=== PATIENT | female | born 1995 | race Caucasian/White ===

== ENCOUNTER 2020-11-20 04:15 | Emergency (ER) | payer SELFPAY ==
[~2020-11-20] VITALS: Ht 167.7 cm; Wt 140.0 kg
[~2020-11-20 04:15] MED LIST: AZIT250T12 PO; CEFD300C3 PO; LORA1TAB59 PO; MEDR150D8 IM; MEDR400V IM; METH4TAB PO; NAPR-915 PO; OMEP20CA6 PO; SERT50TA2 PO; SMTR50T PO
--- NOTE | 2020-11-20 04:41 | ED Headache ---
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 PT C/O "MIGRAINE" SINCE THURSDAY EVENING 11/18/20 PT STATES "I HAVE CHRONIC MIGRAINES" STATES SHE GETS HEADACHES ONCE A WEEK, BUT "MIGRAINES" EVERY COUPLE OF MONTHS STATES THIS HEADACHE IS BEHIND RIGHT EYE AND IN RIGHT OCCIPUT C/O SEEING SPOTS IN BOTH EYES HEADACHE IS WORSE WITH LIGHT/SOUND C/O NAUSEA, NO VOMITING STATES THIS IS EXACTLY LIKE HER USUAL HEADACHES AND IS NO DIFFERENT IN ANY WAY STATES SHE TOOK 1 ZOFRAN, 1 IMITREX AND 1 OTC "HEADACHE RELIEF" YESTERDAY MORNING TOOK MIDOL AT 2300 THIS PM WHEN SHE GOT TO WORK HAS NOT TAKEN ANYTHING ELSE FOR SYMPTOMS STATES NO RELIEF WITH THE ABOVE PT DENIES FEVER OR RECENT ILLNESS PT HAS NOT HAD COVID-19 VACCINE AND STATES SHE "WILL NEVER GET IT" ADDITIONALLY, PT STATES SHE IS SUPPOSED TO BE ON INSULIN, BUT QUIT TAKING IT--"COULDN'T AFFORD IT" STATES SHE WAS DX WITH INSULIN DEPENDENT DIABETES 07/2019 STATES SHE IS SUPPOSED TO BE TAKING : NOVOLIN 45 UNITS IN AM, 35 UNITS IN PM; NOVOLIN R 15 UNITS WITH EACH MEAL PT HAS NOT TAKEN INSULIN SINCE JULY PT DOES NOT CHECK BLOOD SUGARS--STATES "IT WAS ALWAYS OVER 600 EVERY TIME WHEN I USED TO CHECK IT" PT STATES SHE JUST MOVED HERE IN [place] FROM [place] WAS GOING TO [facility] IN [place]--HAS NOT BEEN THERE FOR MANY MONTHS HAS NOT ATTEMPTED TO ESTABLISH CARE WITH ANYONE HERE IN [place] PCP: NONE STATES SHE HAS A NEUROLOGIST AT [facility] IN [place], DOES NOT KNOW NAME, HAS NOT BEEN THERE IN A LONG TIME Allergies and Home Medications Allergies Coded Allergies: Penicillins (Unverified Allergy, Unknown, 04/10/15) codeine (Unverified Allergy, Unknown, 04/10/15) prochlorperazine (Unverified Allergy, Unknown, 04/10/15) Home Medications Naproxen 500 Mg Tablet, 500 MG PO BID Prescribed by: MARTY HAGEN on 08/30/15 0236 Omeprazole 20 Mg Capsule.dr, 20 MG PO DAILY, (Reported) Sertraline HCl 50 Mg Tablet, 50 MG PO DAILY, (Reported) Patient Home Medication List Home Medication List Reviewed: Yes Review of Systems Review of Systems Constitutional: no symptoms reported Eyes: See HPI Ears, Nose, Mouth, Throat: no symptoms reported Respiratory: no symptoms reported Cardiovascular: no symptoms reported Gastrointestinal: see HPI, nausea; No vomiting Genitourinary: no symptoms reported : No LMP: Nov 07, 2020 (NO CONTROL) Musculoskeletal: no symptoms reported Skin: no symptoms reported Psychiatric/Neurological: See HPI, Headache; Denies Numbness, Denies Paresthesia, Denies Seizure, Denies Tingling, Denies Weakness Past Gpzwqjg-Fngzuc-Ayaagg Hx Past Med/Social Hx: Reviewed and Corrections made Patient Social History Alcohol Use: Rarely Uses Drug of Choice: THC Smoking Status: Current Everyday Smoker Type Used: Electronic/Vapor Seasonal Allergies Seasonal Allergies: Yes Past Medical History Surgeries: Yes (SKIN LESION REMOVED LEFT SHOULDER;RIGHT BREAST BIOPSY X 3;BMT'S) Adenoidectomy, Breast, Ear Surgery, Gallbladder, Orthopedic, Tonsillectomy Respiratory: Yes Asthma, Sleep Apnea Currently Using CPAP: No Currently Using BIPAP: No Cardiac: No Neurological: Yes Headaches /Migraines : No Reproductive Disorders: No Female Reproductive Disorders: Denies Sexually Transmitted Disease: No Genitourinary: No Gastrointestinal: No Musculoskeletal: No Endocrine: Yes (NON COMPLIANT-NOT TAKING INSULIN OR CHECKING BLOOD SUGAR) Diabetes, Insulin dep HEENT: Yes Chronic Ear Infection, Tonsilitis Psychosocial: Yes (BORDERLINE PERSONALITY) Anxiety, PTSD, Bipolar, Personality Disorder, Depression Adverse Reaction/Blood Tranf: No Family Medical History No Pertinent Family Hx Physical Exam Vital Signs Vital Signs - First Documented 11/20/20 04:30 Temp 36.9 Pulse 102 B/P (MAP) 144/78 (100) Pulse Ox 97 O2 Delivery Room Air Capillary Refill : Height, Weight, BMI Height: 5'6" Weight: 380lbs. oz. 172.176566qj; 61.33 BMI Method:Stated General Appearance: WD/WN, no apparent distress, obese, other (DOES NOT APPEAR TO BE IN ANY DISCOMFORT OR DISTRESS) HEENT: PERRL/EOMI, normal ENT inspection, TMs normal, pharynx normal Neck: non-tender, full range of motion, supple, normal inspection Cardiovascular: regular rate, rhythm, no murmur Respiratory: normal breath sounds Gastrointestinal: soft Extremities: normal inspection, normal capillary refill Psychiatric: alert, oriented x 3, other (FLAT AFFECT) Crainal Nerves: normal hearing, normal speech, PERRL Coordination/Gait: normal gait Motor/Sensory: no motor deficit Skin: normal color, warm/dry, tattoos/piercings (TATTOOS) Progress/Results/Core Measures Results/Orders Lab Results Laboratory Tests Test 11/20/20 04:32 11/20/20 04:40 Range/Units Urine Opiates Screen NEGATIVE NEGATIVE Urine Oxycodone Screen NEGATIVE NEGATIVE Urine Methadone Screen NEGATIVE NEGATIVE Urine Propoxyphene Screen NEGATIVE NEGATIVE Urine Barbiturates Screen NEGATIVE NEGATIVE Ur Tricyclic Antidepressants Screen NEGATIVE NEGATIVE Urine Phencyclidine Screen NEGATIVE NEGATIVE Urine Amphetamines Screen NEGATIVE NEGATIVE Urine Methamphetamines Screen NEGATIVE NEGATIVE Urine Benzodiazepines Screen NEGATIVE NEGATIVE Urine Cocaine Screen NEGATIVE NEGATIVE Urine Cannabinoids Screen NEGATIVE NEGATIVE Glucometer 391 H 70-110 MG/DL My Orders Orders - MARTY HAGEN DO Urine Bedside (11/20/20 04:26) Drug Screen Stat (Urine) (11/20/20 04:26) Accucheck Stat ONCE (11/20/20 04:36) Ketorolac Injection (Toradol Injection) (11/20/20 04:45) Ondansetron Oral Dissolve Tab (Zofran (11/20/20 05:00) Medications Given in ED Current Medications Medications Dose Ordered Sig/Russ Route Start Time Stop Time Status Last Admin Dose Admin Ketorolac Tromethamine 60 mg ONCE ONCE IM 11/20/20 04:45 11/20/20 04:46 DC 11/20/20 04:52 60 MG Ondansetron HCl 4 mg ONCE ONCE PO 11/20/20 05:00 11/20/20 05:01 DC 11/20/20 04:52 4 MG Vital Signs/I&O 11/20/20 04:30 Temp 36.9 Pulse 102 B/P (MAP) 144/78 (100) Pulse Ox 97 O2 Delivery Room Air Progress Progress Note : Progress Note ACCUCHECK--391--PT STATES SHE IS NOT CONCERNED ABOUT HER BLOOD SUGAR--STATES "IT WAS ALWAYS OVER 600 WHEN I USED TO CHECK IT" IS NOT CONCERNED ABOUT GETTING RESTARTED ON MEDICATION OR CHECKING HER BLOOD SUGARS DOES NOT WANT ANY FURTHER TESTING OR TREATMENT OF GLUCOSE TONIGHT STRONGLY ADVISED THE IMPORTANCE OF FOLLOW UP WITH [facility] IN [place], OR [facility]LISH [facility] IN [place] FOR FURTHER EVALUATION AND TREATMENT OF HER BLOOD SUGAR--PT STATES SHE IS NOT INTERESTED. [facility] WITH HER MEDICATIONS, DIABETIC TEACHING, GETTING GLUCOSE MONITOR, ETC. ADVISED HER OF ALL THE COMPLICATIONS OF DIABETES, INCLUDING BLINDNESS, DAMAGE TO INTERNAL ORGANS, NERVE DAMAGE, LOSS OF LIMBS, INFECTIONS AND , AND THAT THOSE THINGS COULD BE PREVENTED WITH GOOD CONTROL OF HER BLOOD SUGAR, ESPECIALLY IF SHE GETS CONTROL OF IT AT HER YOUNG AGE. PT STATES SHE "DOESN'T CARE"--PT STATES "I DON'T NEED TO HEAR IT--I ALREADY KNOW ALL OF IT"--"EVERYBODY IN MY FAMILY HAS IT"--I DON'T NEED TO HEAR A LECTURE FROM YOU" GIVEN TORADOL AND ZOFRAN PT STATES SHE STILL HAS ZOFRAN AND IMITREX AT HOME Departure Impression Primary Impression: Headache Additional Impression: NON COMPLIANT INSULIN DEPENDENT DIABETES Disposition: HOME, SELF-CARE Condition: Stable Departure-Patient Inst. Decision time for Depature: 05:00 Referrals: NO,LOCAL PHYSICIAN (PCP/Family) Primary Care Physician Patient Instructions: DIABETES, Headache, Adult (DC) Add. Discharge Instructions: LOTS OF CLEAR LIQUIDS TYLENOL 1 GRAM/ MOTRIN 800 MG 4 TIMES A DAY NEEDED FOR PAIN TAKE ZOFRAN EVERY 4 HOURS NEEDED FOR NAUSEA TAKE YOUR IMITREX SOON YOUR HEADACHE STARTS. YOU MAY REPEAT IT IN 2 HOURS IF NEEDED FOLLOW UP WITH [facility] IN [place], OR WITH LOCAL DR OF CHOICE SOON POSSIBLE FOR FURTHER CARE Work/School Note: Local Medical Staff Listing MARTY HAGEN DO Nov 20, 2020 04:41
[2020-11-20] MEDS ORDERED: KETOROLAC 60 MG/2 ML VIAL IM ONE (04:45)
[2020-11-20 04:56] LABS: AMPHETAMINE SCREEN, URINE NEGATIVE (NEGATIVE); BARBITURATE SCREEN URINE NEGATIVE (NEGATIVE); BENZODIAZEPINES SCREEN URINE NEGATIVE (NEGATIVE); CANNABINOID SCREEN, URINE NEGATIVE (NEGATIVE); COCAINE SCREEN URINE NEGATIVE (NEGATIVE); METHADONE STAT NEGATIVE (NEGATIVE); METHAMPHETAMINE SCREEN URINE S NEGATIVE (NEGATIVE); OPIATE SCREEN URINE NEGATIVE (NEGATIVE); OXYCODONE STAT NEGATIVE (NEGATIVE); PROPOXYPHENE STAT NEGATIVE (NEGATIVE); TRICYCLIC ANTIDEPRESSANTS SCRE NEGATIVE (NEGATIVE)
[2020-11-20] MEDS ORDERED: ONDANSETRON 4 MG (ZOFRAN) ORAL DISSOLVE TAB PO ONE (05:00)
[2020-11-20 05:10] VITALS: BP 128/89
== END 2020-11-20 05:06 | disposition home or self-care (01) ==
LOC: EDUNIT# 04:15 → ER 04:21
DX: G43.709 Chronic migraine without aura, not intractable, without status migrainosus (principal); F41.9 Anxiety disorder, unspecified; F43.10 Post-traumatic stress disorder, unspecified; F31.9 Bipolar disorder, unspecified; F60.9 Personality disorder, unspecified; E11.9 Type 2 diabetes mellitus without complications; E66.9 Obesity, unspecified; J45.909 Unspecified asthma, uncomplicated; F17.290 Nicotine dependence, other tobacco product, uncomplicated; Z79.4 Long term (current) use of insulin; Z91.14 Patient's other noncompliance with medication regimen
CPT/HCPCS: 80306; 82947; 84703

== ENCOUNTER 2021-02-10 00:44 | Emergency (ER) | payer SELFPAY ==
[~2021-02-10] VITALS: Ht 167 cm; Wt 145.0 kg
[2021-02-10] MEDS ORDERED: INSN1U (00:57)
[2021-02-10] MEDS ORDERED: PRD20T (00:57)
[2021-02-10] MEDS ORDERED: CYCL10TA9 (00:57)
--- NOTE | 2021-02-10 02:18 | ED General ---
General Chief Complaint: COVID19 Suspect/Confirmed Stated Complaint: COUGH/CONGESTION/HEADACHE/LOSS OF TASTE/SMELL Nursing Triage Note: dx with ear/sinus infection 02/07/21 reports sore throat, persistant cough, loss of taste/smell 02/09/21 Source of Information: Patient Exam Limitations: No Limitations History of Present Illness Date Seen by Provider: Feb 10, 2021 Time Seen by Provider: 00:55 Initial Comments This 25-year-old young lady presents to the emergency room with complaints of cough, shortness of breath, discomfort in the upper central chest, and congesti on. She was diagnosed with a sinus infection on February 07 and started on azithromycin. She has been previously fully vaccinated for COVID-19. She has risk factors and comorbidities including diabetes, asthma, and obesity. She is noted to be mildly tachycardic on presentation. Yesterday she noted changes to her taste and smell. Allergies and Home Medications Allergies Coded Allergies: Penicillins (Unverified Allergy, Unknown, 04/10/15) codeine (Unverified Allergy, Unknown, 04/10/15) prochlorperazine (Unverified Allergy, Unknown, 04/10/15) Patient Home Medication List Home Medication List Reviewed: Yes Cyclobenzaprine HCl (Cyclobenzaprine HCl) 10 Mg Tablet, (Reported) Entered as Reported by: RHONDA GEORGES on 02/10/2156 Last Action: New Order Insulin NPH Human Isophane (Novolin N) 100 Unit/1 Ml Vial, (Reported) Entered as Reported by: RHONDA GEORGES on 02/10/2156 Last Action: New Order Medroxyprogesterone Acetate (Depo-Provera) 150 Mg/1 Ml Syringe, 150 MG IM, (Reported) Entered as Reported by: SHELLEY MCCLOUD on 08/30/15213 Naproxen (Naproxen) 500 Mg Tablet, 500 MG PO BID Prescribed by: MARTY HAGEN on 08/30/15235 Omeprazole (Prilosec) 20 Mg Capsule.dr, 20 MG PO DAILY, (Reported) Entered as Reported by: SHELLEY MCCLOUD on 08/30/15213 Prednisone (Prednisone) 20 Mg Tab, (Reported) Entered as Reported by: RHONDA GEORGES on 02/10/2156 Last Action: New Order Sertraline HCl (Zoloft) 50 Mg Tablet, 50 MG PO DAILY, (Reported) Entered as Reported by: SHELLEY MCCLOUD on 08/30/15 0214 Review of Systems Review of Systems Constitutional: no symptoms reported EENTM: see HPI Respiratory: see HPI Cardiovascular: see HPI Gastrointestinal: no symptoms reported Genitourinary: no symptoms reported : No Musculoskeletal: no symptoms reported Skin: no symptoms reported Psychiatric/Neurological: No Symptoms Reported Past Yrczpgh-Kumaat-Nktlic Hx Patient Social History Tobacco Use?: Yes Smoking Status: Current Everyday Smoker Use of E-Cig and/or Vaping dev: Yes E-Cig or Vaping type used: Nicotine Use of E-Cig and/or Vaping Phong: Current Everyday User Substance use?: No Alcohol Use?: No Pt feels they are or have been: No Immunizations Up To Date Tetanus Booster (TDap): Less than 5yrs First/Initial COVID19 Vaccinat: 01/19 Second COVID19 Vaccination Yann: 02/19 COVID19 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 Surgeries: Yes (SKIN LESION REMOVED LEFT SHOULDER;RIGHT BREAST BIOPSY X 3;BMT'S ) Gallbladder, Tonsillectomy Respiratory: Yes Asthma, Sleep Apnea Currently Using CPAP: No Currently Using BIPAP: No Cardiac: No Neurological: Yes Headaches /Migraines Reproductive Disorders: No Female Reproductive Disorders: Denies Sexually Transmitted Disease: No Genitourinary: No Gastrointestinal: No Musculoskeletal: No Endocrine: Yes (NON COMPLIANT-NOT TAKING INSULIN OR CHECKING BLOOD SUGAR) Diabetes, Insulin dep HEENT: Yes Chronic Ear Infection, Tonsilitis Cancer: No Psychosocial: Yes (BORDERLINE PERSONALITY) Anxiety, PTSD, Bipolar, Personality Disorder, Depression Integumentary: Yes Blood Disorders: No Adverse Reaction/Blood Tranf: No Family Medical History No Pertinent Family Hx Physical Exam Vital Signs Vital Signs - First Documented 02/10/21 00:49 Temp 37.0 Pulse 108 Resp 18 B/P (MAP) 150/93 (112) Pulse Ox 97 O2 Delivery Room Air Capillary Refill : Less Than 3 Seconds Height, Weight, BMI Height: 5'6" Weight: 380lbs. oz. 172.886032il; 51.00 BMI Method:Stated General Appearance: WD/WN, Mild Distress (A little short of breath), Obese HEENT: PERRL/EOMI, Normal ENT Inspection, Pharynx Normal Neck: Normal Inspection Respiratory: Lungs Clear, No Accessory Muscle Use, Other (Breath sounds a bit diminished. Slightly tachypneic.) Cardiovascular: No Edema, No Murmur, Tachycardia Gastrointestinal: Normal Bowel Sounds, Non Tender, Soft Extremity: Normal Inspection, No Calf Tenderness, No Pedal Edema Neurologic/Psychiatric: Alert, Oriented x3, No Motor/Sensory Deficits, Normal Mood/Affect Skin: Normal Color, Warm/Dry Progress/Results/Core Measures Suspected Sepsis SIRS Temperature: Pulse: 108 Respiratory Rate: 18 Blood Pressure 150 /93 Mean: 112 Results/Orders Lab Results Laboratory Tests Test 02/10/21 00:55 Range/Units Influenza Type A (RT-PCR) Not Detected Not Detecte Influenza Type B (RT-PCR) Not Detected Not Detecte SARS-CoV-2 RNA (RT-PCR) Not Detected Not Detecte Group A Streptococcus Screen NEGATIVE NEGATIVE Micro Results Microbiology 02/10/21 Throat Culture - Preliminary, Resulted No Beta Strep isolated My Orders Orders - SEDA CASIANO MD Covid 19 Inhouse Test (02/10/21 00:55) Influenza A And B By Pcr (02/10/21 00:55) Rapid Strep A Screen (02/10/21 01:04) Vital Signs/I&O 02/10/21 02/10/21 00:49 02:20 Temp 37.0 36.9 Pulse 108 101 Resp 18 18 B/P (MAP) 150/93 (112) 121/61 Pulse Ox 97 96 O2 Delivery Room Air Room Air Capillary Refill : Less Than 3 Seconds Blood Pressure Mean: 112 Progress Note : Progress Note Oxygen saturation remained in the upper 90s on room air without any treatments. Symptoms are highly suspicious for COVID-19 but her swab was negative. Swabs for influenza and strep were also negative. She was encouraged to continue with her is a azithromycin. She was also encouraged to have a repeat COVID-19 test performed as her symptoms are highly suspicious and I am concerned her test this morning may be a false negative. See discharge instructions for further discus unique. Departure Impression Primary Impression: Person under investigation for COVID-19 Additional Impression: Flu-like symptoms Disposition: HOME, SELF-CARE Condition: Stable Departure-Patient Inst. Decision time for Depature: 02:15 Referrals: NO,LOCAL PHYSICIAN (PCP/Family) Primary Care Physician Patient Instructions: COVID-19 ED, Viral Upper Respiratory Infection, Adult (DC) Add. Discharge Instructions: Medications you have classic symptoms of COVID-19 with loss of taste and smell, I am recommending that you remain in quarantine until you can get a repeat COVID-19 test in 24 to 48 hours. If you test positive for COVID-19, please contact your primary care provider to arrange monoclonal antibody therapy. You will qualify for this treatment because of your asthma, diabetes, and BMI. If you cannot get this arranged through your primary care provider, please call back to the ER at [facility]. Complete your antibiotic as prescribed. Check your oxygen saturation 2 or 3 times a day or if you are feeling increasingly short of breath. If you have multiple measurements below 92% or any measurement below 90%, please return to the ER. Call with questions or concerns. Return to the ER if you have worsening symptoms. All discharge instructions reviewed with patient and/or family. Voiced understanding. Work/School Note: Work Release Form Date Seen in the Emergency Department: Feb 10, 2021 Return to Work: Feb 12, 2021 Restrictions: Return-No Fever (24hrs) Other Restrictions Listed Below: May return to work if feeling well and COVID test is negative. SEDA CASIANO MD Feb 10, 2021 02:18
[2021-02-10 02:20] VITALS: BP 121/61
== END 2021-02-10 02:24 | disposition home or self-care (01) ==
LOC: EDUNIT# 00:44 → ER 00:46
DX: J11.1 Influenza due to unidentified influenza virus with other respiratory manifestations (principal); G47.30 Sleep apnea, unspecified; F41.9 Anxiety disorder, unspecified; E66.9 Obesity, unspecified; J45.909 Unspecified asthma, uncomplicated; F32.9 Major depressive disorder, single episode, unspecified; E11.9 Type 2 diabetes mellitus without complications; F17.290 Nicotine dependence, other tobacco product, uncomplicated; Z20.822 Contact with and (suspected) exposure to COVID-19; Z68.43 Body mass index [BMI] 50.0-59.9, adult; Z79.899 Other long term (current) drug therapy; Z79.4 Long term (current) use of insulin
CPT/HCPCS: 87430; 87636; 99284

== ENCOUNTER 2021-05-18 23:58 | Emergency (ER) | payer SELFPAY ==
[~2021-05-18] VITALS: Ht 168 cm; Wt 143.0 kg
[~2021-05-18 23:58] MED LIST changes: +CYCL10TA25; +INSN1U; +PRD20T
[2021-05-19] MEDS ORDERED: ONDANSETRON 4 MG (ZOFRAN) ORAL DISSOLVE TAB PO STA (00:19)
[2021-05-19] MEDS ORDERED: CYCL10TA25 PO (00:21)
[2021-05-19] MEDS ORDERED: ONDA8TAB13 PO (00:21)
[2021-05-19] MEDS ORDERED: KETO10TA PO (00:21)
--- NOTE | 2021-05-19 00:21 | ED Headache ---
General Chief Complaint: Head/Cervical Problems Stated Complaint: MIGRAINE Source: patient History of Present Illness Date Seen by Provider: May 19, 2021 Time Seen by Provider: 00:09 Initial Comments PT ARRIVES VIA POV C/O "MIGRAINE" X 3 DAYS STATES SHE HAS "CHRONIC MIGRAINES" AND THIS IS EXACTLY THE SAME PREVIOUS HEADACHES PAIN IS BEHIND BOTH EYES AND IN BACK OF HEAD NO VISION CHANGES + NAUSEA, NO VOMITING NO PARESTHESIAS OR MOTOR DEFICITS NO FEVER OR RECENT ILLNESS STATES SHE TOOK 1 TYLENOL EARLIER TODAY AND 1 MIDOL AROUND 1999 TONIGHT--NO RELIEF HAS SUMATRIPTAN AT HOME, BUT HAS NOT TAKEN ANY TODAY--TOOK 1 YESTERDAY WITHOUT RELIEF PT HAS NOT SEEN A NEUROLOGIST SINCE 2017--WAS SEEING UNKNOWN NEUROLOGIST AT [facility] IN [place] PT STATES SHE "JUST MOVED HERE IN [place]UL[place] OF THIS YEAR" [facility] [place]--WAS THERE A FEW MONTHS AGO PT WORKS AT [employer] IN [place] STATES SHE WENT TO [facility], BUT THE WAIT WAS TOO LONG, SO SHE CAME HERE. PT IS INSULIN DEPENDENT DIABETIC--LONG HISTORY OF NON-COMPLIANCE IN ALL ASPECTS OF CARE STATES SHE IS ON HUMALOG 40 MG BID--STATES GLUCOSE WAS IN 200'S AT 1999 TONIGHT. PCP; [facility] [place] Allergies and Home Medications Allergies Coded Allergies: Penicillins (Unverified Allergy, Unknown, 04/10/15) codeine (Unverified Allergy, Unknown, 04/10/15) prochlorperazine (Unverified Allergy, Unknown, 04/10/15) Patient Home Medication List Home Medication List Reviewed: Yes Cyclobenzaprine HCl (Cyclobenzaprine HCl) 10 Mg Tablet, (Reported) Entered as Reported by: RHONDA GEORGES on 02/10/2156 Cyclobenzaprine HCl (Cyclobenzaprine HCl) 10 Mg Tablet, 10 MG PO Q8H PRN for SPASMS Prescribed by: MARTY HAGEN on 05/19/2120 Insulin NPH Human Isophane (Novolin N) 100 Unit/1 Ml Vial, (Reported) Entered as Reported by: RHONDA GEORGES on 02/10/2156 Ketorolac Tromethamine (Ketorolac Tromethamine) 10 Mg Tablet, 10 MG PO Q6H Prescribed by: MARTY HAGEN on 12/19/21 0021 Medroxyprogesterone Acetate (Depo-Provera) 150 Mg/1 Ml Syringe, 150 MG IM, (Reported) Entered as Reported by: SHELLEY MCCLOUD on 08/30/15213 Naproxen (Naproxen) 500 Mg Tablet, 500 MG PO BID Prescribed by: MARTY HAGEN on 08/30/15 0236 Omeprazole (Prilosec) 20 Mg Capsule.dr, 20 MG PO DAILY, (Reported) Entered as Reported by: SHELLEY MCCLOUD on 08/30/15213 Ondansetron (Ondansetron Odt) 8 Mg Tab.rapdis, 8 MG PO Q6H Prescribed by: MARTY HAGEN on 05/19/21 002 Prednisone (Prednisone) 20 Mg Tab, (Reported) Entered as Reported by: RHONDA GEORGES on 02/10/2156 Sertraline HCl (Zoloft) 50 Mg Tablet, 50 MG PO DAILY, (Reported) Entered as Reported by: SHELLEY MCCLOUD on 08/30/15213 Review of Systems Review of Systems Constitutional: no symptoms reported Eyes: See HPI Ears, Nose, Mouth, Throat: no symptoms reported Respiratory: no symptoms reported Gastrointestinal: see HPI; No abdominal pain, No diarrhea; nausea; No vomiting Genitourinary: no symptoms reported LMP: Apr 25, 2021 Musculoskeletal: no symptoms reported Skin: no symptoms reported Psychiatric/Neurological: See HPI, Headache; Denies Numbness, Denies Paresthesia, Denies Seizure, Denies Tingling, Denies Tremors, Denies Weakness Past Qiayyng-Yctpsc-Mxzgjf Hx Patient Social History Tobacco Use?: Yes Use of E-Cig and/or Vaping dev: Yes E-Cig or Vaping type used: Nicotine Use of E-Cig and/or Vaping Phong: Current Everyday User Substance use?: Yes Substance type: Marijuana Substance frequency: Daily Alcohol Use?: Yes Alcohol Frequency: Rarely Immunizations Up To Date Tetanus Booster (TDap): Less than 5yrs First/Initial COVID19 Vaccinat: 01/19 Second COVID19 Vaccination Yann: 02/19 Seasonal Allergies Seasonal Allergies: No Past Medical History Surgery/Hospitalization HX: marcia, t/a, bmt, r lumpectomy, asthma, iddm, lexa, ptsd, borderline personality disorder, anxiety. Surgeries: Yes (SKIN LESION REMOVED LEFT SHOULDER;RIGHT BREAST BIOPSY X 3;BMT'S) Breast, Ear Surgery, Gallbladder, Tonsillectomy Respiratory: Yes Asthma, Sleep Apnea Currently Using CPAP: No Currently Using BIPAP: No Cardiac: No Neurological: Yes Headaches /Migraines Reproductive Disorders: No Female Reproductive Disorders: Denies Sexually Transmitted Disease: No Genitourinary: No Gastrointestinal: No Musculoskeletal: No Endocrine: Yes (NON COMPLIANT-; MORBID OBESITY) Diabetes, Insulin dep HEENT: Yes Chronic Ear Infection, Tonsilitis Cancer: No Psychosocial: Yes (BORDERLINE PERSONALITY) Anxiety, PTSD, Bipolar, Personality Disorder, Depression Integumentary: Yes Blood Disorders: No Adverse Reaction/Blood Tranf: No Family Medical History No Pertinent Family Hx Physical Exam Vital Signs Vital Signs - First Documented 05/19/21 00:05 Temp 36.4 Pulse 104 Resp 18 B/P (MAP) 155/92 (113) Pulse Ox 99 O2 Delivery Room Air Capillary Refill : Height, Weight, BMI Height: 5'6" Weight: 380lbs. oz. 172.646968er; 51.00 BMI Method:Stated General Appearance: WD/WN, obese, other (FLAT AFFECT. DOES NOT APPEAR TO BE IN ANY DISCOMFORT OR DISTRESS. NO PHOTOPHOBIA) HEENT: PERRL/EOMI, normal ENT inspection, other (TM'S SCLEROTIC) Neck: non-tender, full range of motion, supple, normal inspection Cardiovascular: normal peripheral pulses, regular rate, rhythm, no edema, no JVD, no murmur Respiratory: normal breath sounds Gastrointestinal: non tender, soft Extremities: normal inspection Psychiatric: alert, oriented x 3 Crainal Nerves: normal hearing, normal speech, PERRL Coordination/Gait: normal gait Motor/Sensory: no motor deficit, no sensory deficit Skin: normal color, warm/dry Progress/Results/Core Measures Results/Orders My Orders Orders - MARTY HAGEN DO Ketorolac Injection (Toradol Injection) (05/19/21 00:30) Orphenadrine Inj (Ed Only) (Norflex Inje (05/19/21 00:30) Ondansetron Oral Dissolve Tab (Zofran (05/19/21 00:19) Medications Given in ED Current Medications Medications Dose Ordered Sig/Russ Route Start Time Stop Time Status Last Admin Dose Admin Ketorolac Tromethamine 60 mg ONCE ONCE IM 05/19/21 00:30 05/19/21 00:31 DC 05/19/21 00:27 60 MG Orphenadrine Citrate 60 mg ONCE ONCE IM 05/19/21 00:30 05/19/21 00:31 DC 05/19/21 00:28 60 MG Vital Signs/I&O 05/19/21 00:05 Temp 36.4 Pulse 104 Resp 18 B/P (MAP) 155/92 (113) Pulse Ox 99 O2 Delivery Room Air Progress Progress Note : Progress Note GIVEN TORADOL, NORFLEX AND ZOFRAN WITH IMPROVEMENT IN SYMPTOMS PT TALKING ON PHONE THROUGHOUT ER STAY Departure Impression Primary Impression: Headache Disposition: HOME, SELF-CARE Condition: Stable Departure-Patient Inst. Decision time for Depature: 00:20 Referrals: NO,LOCAL PHYSICIAN (PCP/Family) Primary Care Physician Patient Instructions: Headache, Adult (DC) Add. Discharge Instructions: TAKE YOUR REGULAR MEDICATIONS PRESCRIBED FOLLOW UP WITH NEUROLOGIST NEXT WEEK FOR FURTHER CARE All discharge instructions reviewed with patient and/or family. Voiced understanding. Scripts Ondansetron (Ondansetron Odt) 8 Mg Tab.rapdis 8 MG PO Q6H, #10 TAB Prov: MARTY HAGEN DO 05/19/21 Ketorolac Tromethamine (Ketorolac Tromethamine) 10 Mg Tablet 10 MG PO Q6H for Pain, #15 TAB Prov: MARTY HAGEN DO 05/19/21 Cyclobenzaprine HCl (Cyclobenzaprine HCl) 10 Mg Tablet 10 MG PO Q8H PRN for SPASMS, #15 TAB 0 Refills Prov: MARTY HAGEN DO 05/19/21 MARTY HAGEN DO May 19, 2021 00:21
[2021-05-19] MEDS ORDERED: ORPHENADRINE 60 MG/2 ML (NORFLEX) AMP (ED ONLY) IM ONE (00:30)
[2021-05-19] MEDS ORDERED: KETOROLAC 60 MG/2 ML VIAL IM ONE (00:30)
[2021-05-19 00:50] VITALS: BP 145/87
== END 2021-05-19 00:52 | disposition home or self-care (01) ==
LOC: EDUNIT# 23:58 → ER 05-19
DX: R51.9 Headache, unspecified (principal); J45.909 Unspecified asthma, uncomplicated; G47.30 Sleep apnea, unspecified; E11.9 Type 2 diabetes mellitus without complications; F41.9 Anxiety disorder, unspecified; F32.9 Major depressive disorder, single episode, unspecified; E66.9 Obesity, unspecified; F17.290 Nicotine dependence, other tobacco product, uncomplicated; Z68.43 Body mass index [BMI] 50.0-59.9, adult; Z79.4 Long term (current) use of insulin; Z79.899 Other long term (current) drug therapy
CPT/HCPCS: 99284

== ENCOUNTER 2021-08-22 20:43 | Emergency (ER) | payer MEDICARE ==
[~2021-08-22] VITALS: Ht 167.7 cm; Wt 157.7 kg
[~2021-08-22 20:43] MED LIST changes: +CYCL10TA25 PO; +KETO10TA PO; +ONDA8TAB13 PO
[2021-08-22 21:20] LABS: BILIRUBIN,URINE NEGATIVE (NEGATIVE); CLARITY,URINE CLEAR; COLOR,URINE YELLOW; GLUCOSE, URINE (UA) NEGATIVE (NEGATIVE); KETONES,URINE NEGATIVE (NEGATIVE); LEUKOCYTE ESTERASE ,URINE NEGATIVE (NEGATIVE); NITRITE,URINE NEGATIVE (NEGATIVE); PH,URINE 6.5 (5-9); PROTEIN,URINE NEGATIVE (NEGATIVE)
--- NOTE | 2021-08-22 21:26 | ED Cough/URI ---
General Chief Complaint: Cough/Cold/Flu Symptoms Stated Complaint: COUGH, HEADACHE, CONGESTION, SORE THROAT Nursing Triage Note: COUGH CONGESTION AND FATIGUE X 1 DAY. ALSO REPORTS THAT SHE HAS HAD TWO POSITIVE HOME TESTS (CHEPE ABERNATHY) History of Present Illness Date Seen by Provider: Aug 22, 2021 Time Seen by Provider: 21:00 Initial Comments 26-year-old female presents for 24-hour history of fatigue and respiratory congestion that he had she also reports ten positive test, she has started taking a vitamin daily, and is scheduled to see an OB doctor in early August. She reports mild nausea, intermittently the last week. Vomited once today. Has been pushing water and sprite. Timing/Duration: yesterday Severity/Quality: dry cough Associated Symptoms: cough, nasal congestion (CHEPE ABERNATHY) Allergies and Home Medications Allergies Coded Allergies: Penicillins (Unverified Allergy, Unknown, 04/10/15) codeine (Unverified Allergy, Unknown, 04/10/15) olanzapine (Verified Allergy, Unknown, 08/22/21) prochlorperazine (Unverified Allergy, Unknown, 04/10/15) Patient Home Medication List Home Medication List Reviewed: Yes (CHEPE ABERNATHY) Cyclobenzaprine HCl (Cyclobenzaprine HCl) 10 Mg Tablet, (Reported) Entered as Reported by: RHONDA GEORGES on 02/10/2156 Cyclobenzaprine HCl (Cyclobenzaprine HCl) 10 Mg Tablet, 10 MG PO Q8H PRN for SPASMS Prescribed by: MARTY HAGEN on 05/19/2120 Insulin NPH Human Isophane (Novolin N) 100 Unit/1 Ml Vial, (Reported) Entered as Reported by: RHONDA GEORGES on 02/10/2156 Ketorolac Tromethamine (Ketorolac Tromethamine) 10 Mg Tablet, 10 MG PO Q6H Prescribed by: MARTY HAGEN on 05/19/2120 Medroxyprogesterone Acetate (Depo-Provera) 150 Mg/1 Ml Syringe, 150 MG IM, (Reported) Entered as Reported by: SHELLEY MCCLOUD on 08/30/15 021 Naproxen (Naproxen) 500 Mg Tablet, 500 MG PO BID Prescribed by: MARTY HAGEN on 08/30/15 0236 Omeprazole (Prilosec) 20 Mg Capsule.dr, 20 MG PO DAILY, (Reported) Entered as Reported by: SHELLEY MCCLOUD on 08/30/15213 Ondansetron (Ondansetron Odt) 8 Mg Tab.rapdis, 8 MG PO Q6H Prescribed by: MARTY HAGEN on 05/19/21 0021 Ondansetron (Ondansetron Odt) 8 Mg Tab.rapdis, 8 MG PO Q8H Prescribed by: CHEPE ABERNATHY on 08/22/212151 Prednisone (Prednisone) 20 Mg Tab, (Reported) Entered as Reported by: RHONDA GEORGES on 02/10/21 0057 Sertraline HCl (Zoloft) 50 Mg Tablet, 50 MG PO DAILY, (Reported) Entered as Reported by: SHELLEY MCCLOUD on 08/30/15213 Review of Systems Review of Systems Constitutional: see HPI; No fever; malaise EENTM: see HPI, no symptoms reported Respiratory: see HPI, cough Cardiovascular: no symptoms reported, see HPI Gastrointestinal: no symptoms reported, see HPI : Yes Expected Date of Delivery: Apr 27, 2022 LMP: Jul 21, 2021 (CHEPE ABERNATHY) All Other Systems Reviewed Negative Unless Noted: Yes (CHEPE ABERNATHY) Past Igrlfpl-Afolyk-Zdbroz Hx Patient Social History Pt feels they are or have been: No (CHEPE ABERNATHY) Immunizations Up To Date Tetanus Booster (TDap): Less than 5yrs Influenza Vaccine Up-to-Date: No; Not Current First/Initial COVID19 Vaccinat: 2020 Second COVID19 Vaccination Yann: JAN 2021 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 -NO BOOSTERS (CHEPE ABERNATHY) Seasonal Allergies Seasonal Allergies: No (CHEPE ABERNATHY) Past Medical History Surgery/Hospitalization HX: DM 2, ASTHMA, PCOS, MIGRAINES, SLEEP APNEA Surgeries: Yes (SKIN LESION REMOVED LEFT SHOULDER;RIGHT BREAST BIOPSY X 3;BMT'S) Breast, Ear Surgery, Gallbladder, Tonsillectomy Respiratory: Yes Asthma, Sleep Apnea Currently Using CPAP: No Currently Using BIPAP: No Cardiac: No Neurological: Yes Headaches /Migraines : Yes Last Menstrual Period: Jul 21, 2021 Reproductive Disorders: No Female Reproductive Disorders: Denies Sexually Transmitted Disease: No Genitourinary: No Gastrointestinal: No Musculoskeletal: No Endocrine: Yes (NON COMPLIANT-; MORBID OBESITY) Diabetes, Insulin dep HEENT: Yes Chronic Ear Infection, Tonsilitis Cancer: No Psychosocial: Yes (BORDERLINE PERSONALITY) Anxiety, PTSD, Bipolar, Personality Disorder, Depression Integumentary: Yes Blood Disorders: No Adverse Reaction/Blood Tranf: No (CHEPE ABERNATHYP) Family Medical History Reviewed Nursing Family Hx (MICHELACHEPE PATINO) No Pertinent Family Hx (CHEPE ABERNATHY CAREY) Physical Exam Vital Signs - First Documented 08/22/21 21:00 Temp 36.0 Pulse 103 Resp 22 B/P (MAP) 138/91 (107) Pulse Ox 97 O2 Delivery Room Air (HIEU,MARTY K DO) Capillary Refill : Less Than 3 Seconds (CHEPE ABERNATHY) Height: 5'6" Weight: 380lbs. oz. [id number]; 56.00 BMI Method:Stated General Appearance: WD/WN, no apparent distress HEENT: PERRL/EOMI, normal ENT inspection, TMs normal, pharynx normal Neck: non-tender, full range of motion, supple, normal inspection Respiratory: chest non-tender, lungs clear, normal breath sounds Cardiovascular: normal peripheral pulses, regular rate, rhythm Gastrointestinal: normal bowel sounds, non tender, soft Extremities: normal range of motion, non-tender, normal inspection, normal capillary refill Neurologic/Psychiatric: no motor/sensory deficits, alert, normal mood/affect, oriented x 3 Skin: normal color, warm/dry (CHEPE ABERNATHYP) Progress/Results/Core Measures Suspected Sepsis SIRS Temperature: Pulse: 103 Respiratory Rate: 22 Blood Pressure 138 /91 Mean: 107 (CHEPE ABERNATHY CAREY) Results/Orders Lab Results Laboratory Tests Test 08/22/21 21:00 Range/Units Urine Color YELLOW Urine Clarity CLEAR Urine pH 6.5 5-9 Urine Specific [place] 1.025 H 1.016-1.022 Urine Protein NEGATIVE NEGATIVE Urine Glucose (UA) NEGATIVE NEGATIVE Urine Ketones NEGATIVE NEGATIVE Urine Nitrite NEGATIVE NEGATIVE Urine Bilirubin NEGATIVE NEGATIVE Urine Urobilinogen 0.2 < = 1.0 MG/DL Urine Leukocyte Esterase NEGATIVE NEGATIVE Urine RBC (Auto) NEGATIVE NEGATIVE Urine RBC NONE /HPF Urine WBC 0-2 /HPF Urine Squamous Epithelial Cells NONE /HPF Urine Renal Epithelial Cells NONE /HPF Urine Crystals NONE /LPF Urine Bacteria MODERATE H /HPF Urine Casts NONE /LPF Urine Mucus NEGATIVE /LPF Urine Culture Indicated NO Urine Test POSITIVE NEGATIVE Influenza Type A (RT-PCR) Not Detected Not Detecte Influenza Type B (RT-PCR) Not Detected Not Detecte SARS-CoV-2 RNA (RT-PCR) Not Detected Not Detecte Group A Streptococcus Screen NEGATIVE NEGATIVE (MARTY HAGEN DO) Vital Signs/I&O 08/22/21 08/22/21 21:00 22:00 Temp 36.0 36.1 Pulse 103 98 Resp 22 20 B/P (MAP) 138/91 (107) 133/84 Pulse Ox 97 98 O2 Delivery Room Air Room Air (MARTY HAGEN DO) Vital Signs/I&O Capillary Refill : Less Than 3 Seconds (CHEPE ABERNATHY) Blood Pressure Mean: 107 Departure Impression Primary Impression: Viral URI Additional Impressions: First trimester Nausea and vomiting during prior to 22 weeks gestation Disposition: 01 HOME, SELF-CARE Condition: Improved Departure-Patient Inst. Decision time for Depature: 21:40 (CHEPE ABERNATHY) Referrals: NO,LOCAL PHYSICIAN (PCP/Family) Primary Care Physician Patient Instructions: Viral Upper Respiratory Infection, Adult (DC), - The Second Month Add. Discharge Instructions: Use the Zofran every 8 hours as needed for nausea and vomiting. Continue to push clear liquids. You may take Tylenol throughout your , 650 mg every 8 hours for pain or fever. Continue to take your vitamin daily. Keep your scheduled appointment with your OB. Based on Last Menstrual Cycle, your due date is 04/27/2022 Return to the emergency department for new, urgent healthcare needs. All discharge instructions reviewed with patient and/or family. Voiced understanding. Scripts Ondansetron (Ondansetron Odt) 8 Mg Tab.rapdis 8 MG PO Q8H, #20 TAB 0 Refills Prov: CHEPE ABERNATHY 08/22/21 ATTENDING PHYSICIAN NOTE: I WAS PHYSICALLY PRESENT ER PHYSICIAN, BUT I WAS NOT INVOLVED IN ANY DECISION MAKING OR ANY CARE OF THIS PATIENT. (MARTY HAGEN DO) CHEPE ABERNATHY Aug 22, 2021 21:26 MARTY HAGEN DO Aug 22, 2021 23:47
[2021-08-22 21:30] LABS: BACTERIA,URINE MODERATE /HPF; WBC,URINE 0-2 /HPF
[2021-08-22] MEDS: ONDANSETRON 4 MG (ZOFRAN) ORAL DISSOLVE TAB SL STA (21:48)
[2021-08-22] MEDS ORDERED: ONDA8TAB13 PO (21:52)
[2021-08-22 22:00] VITALS: BP 133/84
== END 2021-08-22 22:00 | disposition home or self-care (01) ==
LOC: EDUNIT# 20:43 → ER 20:46
DX: O99.511 Diseases of the respiratory system complicating pregnancy, first trimester (principal); J06.9 Acute upper respiratory infection, unspecified; O21.0 Mild hyperemesis gravidarum; Z3A.00 Weeks of gestation of pregnancy not specified; Z20.822 Contact with and (suspected) exposure to COVID-19
CPT/HCPCS: 81000; 84703; 87430; 87636; 99283

== ENCOUNTER 2021-10-20 00:06 | Emergency (ER) | payer MEDICAID, MEDICARE ==
[~2021-10-20] VITALS: Ht 167.7 cm; Wt 163.7 kg
--- NOTE | 2021-10-20 00:32 | ED GU-Female ---
General Chief Complaint: OB < 20 WEEKS Stated Complaint: HEADACHE/VOMITING/CRAMPING 13 WKS PREG Source: patient Exam Limitations: no limitations History of Present Illness Date Seen by Provider: October 20, 2021 Time Seen by Provider: 00:27 Initial Comments Patient is a 26-year-old G2, P0 who presents to the emergency department today with a chief complaint of "my morning sickness is acting out". Patient states that she woke up today with nausea and vomiting. She used a Phenergan suppository at about 4:00. She has been unable to hold down any fluids. She feels a little lightheaded and dizzy when she stands. She has a moderate headache and has abdominal cramping mostly localized to the left lower quadrant. Patient has established care. She denies any vaginal bleeding spotting. No abnormal vaginal discharge. No burning with urination or diarrhea. She has been fighting a little bit of a sinus infection. Previous ended in miscarriage at 5 weeks. All other review of systems reviewed and negative except as stated. Timing/Duration: this morning Severity/Quality: severe, cramping Location: LLQ Activities at Onset: none Associated Symptoms: nausea/vomiting, other (weakness and dizziness) Allergies and Home Medications Allergies Coded Allergies: Penicillins (Unverified Allergy, Unknown, 04/10/15) codeine (Unverified Allergy, Unknown, 04/10/15) olanzapine (Verified Allergy, Unknown, 08/22/21) prochlorperazine (Unverified Allergy, Unknown, 04/10/15) Patient Home Medication List Home Medication List Reviewed: Yes Cyclobenzaprine HCl (Cyclobenzaprine HCl) 10 Mg Tablet, (Reported) Entered as Reported by: RHONDA GEORGES on 02/10/2156 Cyclobenzaprine HCl (Cyclobenzaprine HCl) 10 Mg Tablet, 10 MG PO Q8H PRN for SPASMS Prescribed by: MARTY HAGEN on 05/19/2120 Insulin NPH Human Isophane (Novolin N) 100 Unit/1 Ml Vial, (Reported) Entered as Reported by: RHONDA GEORGES on 02/10/2156 Ketorolac Tromethamine (Ketorolac Tromethamine) 10 Mg Tablet, 10 MG PO Q6H Prescribed by: MARTY HAGEN on 05/19/2120 Medroxyprogesterone Acetate (Depo-Provera) 150 Mg/1 Ml Syringe, 150 MG IM, (Rep orted) Entered as Reported by: SHELLEY MCCLOUD on 08/30/15213 Naproxen (Naproxen) 500 Mg Tablet, 500 MG PO BID Prescribed by: MARTY HAGEN on 08/30/15 023 Omeprazole (Prilosec) 20 Mg Capsule.dr, 20 MG PO DAILY, (Reported) Entered as Reported by: SHELLEY MCCLOUD on 08/30/15213 Ondansetron (Ondansetron Odt) 8 Mg Tab.rapdis, 8 MG PO Q6H Prescribed by: MARTY HAGEN on 05/19/21 0021 Ondansetron (Ondansetron Odt) 8 Mg Tab.rapdis, 8 MG PO Q8H Prescribed by: CHEPE ABERNATHY on 08/22/212151 Prednisone (Prednisone) 20 Mg Tab, (Reported) Entered as Reported by: RHONDA GEORGES on 02/10/21 005 Sertraline HCl (Zoloft) 50 Mg Tablet, 50 MG PO DAILY, (Reported) Entered as Reported by: SHELLEY MCCLOUD on 08/30/15213 Review of Systems Review of Systems Constitutional: see HPI EENTM: nose congestion Respiratory: no symptoms reported Cardiovascular: no symptoms reported Gastrointestinal: abdominal pain (LLQ) Genitourinary: no symptoms reported : Yes Musculoskeletal: no symptoms reported Skin: no symptoms reported Psychiatric/Neurological: Headache, Other (dizziness) Past Wisxomn-Wnasqp-Fspqcc Hx Immunizations Up To Date Tetanus Booster (TDap): Less than 5yrs First/Initial COVID19 Vaccinat: 2020 Second COVID19 Vaccination Yann: JAN 2021 Seasonal Allergies Seasonal Allergies: No Past Medical History Surgery/Hospitalization HX: DM 2, ASTHMA, PCOS, MIGRAINES, SLEEP APNEA Surgeries: Yes (SKIN LESION REMOVED LEFT SHOULDER;RIGHT BREAST BIOPSY X 3;BMT'S) Breast, Ear Surgery, Gallbladder, Tonsillectomy Respiratory: Yes Asthma, Sleep Apnea Currently Using CPAP: No Currently Using BIPAP: No Cardiac: No Neurological: Yes Headaches /Migraines Reproductive Disorders: No Female Reproductive Disorders: Denies Sexually Transmitted Disease: No Genitourinary: No Gastrointestinal: No Musculoskeletal: No Endocrine: Yes (NON COMPLIANT-; MORBID OBESITY) Diabetes, Insulin dep HEENT: Yes Chronic Ear Infection, Tonsilitis Cancer: No Psychosocial: Yes (BORDERLINE PERSONALITY) Anxiety, PTSD, Bipolar, Personality Disorder, Depression Integumentary: Yes Blood Disorders: No Adverse Reaction/Blood Tranf: No Family Medical History No Pertinent Family Hx Physical Exam Vital Signs Vital Signs - First Documented 10/20/21 00:35 Temp 36.1 Pulse 97 Resp 20 B/P (MAP) 123/77 (92) Pulse Ox 98 O2 Delivery Room Air Capillary Refill : Height, Weight, BMI Height: 5'6" Weight: 380lbs. oz. [id number]; 56.00 BMI Method:Stated General Appearance: WD/WN, no apparent distress HEENT: PERRL/EOMI Cardiovascular: regular rate, rhythm (HR 98) Respiratory: lungs clear, normal breath sounds, no respiratory distress, no accessory muscle use Gastrointestinal: soft, tenderness (mild tenderness LLQ) Extremities: normal range of motion Neurologic/Psychiatric: alert, normal mood/affect, oriented x 3 Skin: normal color, warm/dry Progress/Results/Core Measures Suspected Sepsis SIRS Temperature: Pulse: Respiratory Rate: Blood Pressure / Mean: Laboratory Tests 10/20/21 00:57: Creatinine 0.56L Results/Orders Lab Results Laboratory Tests Test 10/20/21 00:47 10/20/21 00:57 Range/Units Urine Color YELLOW Urine Clarity CLEAR Urine pH 7.0 5-9 Urine Specific [place] 1.015 L 1.016-1.022 Urine Protein NEGATIVE NEGATIVE Urine Glucose (UA) NEGATIVE NEGATIVE Urine Ketones NEGATIVE NEGATIVE Urine Nitrite NEGATIVE NEGATIVE Urine Bilirubin NEGATIVE NEGATIVE Urine Urobilinogen 0.2 < = 1.0 MG/DL Urine Leukocyte Esterase NEGATIVE NEGATIVE Urine RBC (Auto) NEGATIVE NEGATIVE Urine RBC NONE /HPF Urine WBC NONE /HPF Urine Squamous Epithelial Cells 0-2 /HPF Urine Crystals PRESENT H /LPF Urine Amorphous Sediment FEW EMANUEL PHOSPHATE H /LPF Urine Bacteria TRACE /HPF Urine Casts NONE /LPF Urine Mucus NEGATIVE /LPF Urine Culture Indicated NO Sodium Level 137 135-145 MMOL/L Potassium Level 3.6 3.6-5.0 MMOL/L Chloride Level 106 98-107 MMOL/L Carbon Dioxide Level 20 L 21-32 MMOL/L Anion Gap 11 5-14 MMOL/L Blood Urea Nitrogen 6 L 7-18 MG/DL Creatinine 0.56 L 0.60-1.30 MG/DL Estimat Glomerular Filtration Rate 130 BUN/Creatinine Ratio 11 Glucose Level 110 H 70-105 MG/DL Calcium Level 9.0 8.5-10.1 MG/DL My Orders Orders - ABIMAEL FRANCIS MD Ed Iv/Invasive Line Start (10/20/21 00:33) Basic Metabolic Panel (10/20/21 00:33) Ua Culture If Indicated (10/20/21 00:33) Lactated Ringers (Lr 1000 Ml Iv Solution (10/20/21 00:45) Ondansetron Injection (Zofran Injectio (10/20/21 00:45) Medications Given in ED Current Medications Medications Dose Ordered Sig/Russ Route Start Time Stop Time Status Last Admin Dose Admin Ondansetron HCl 8 mg ONCE ONCE IVP 10/20/21 00:45 10/20/21 00:46 DC 10/20/21 01:00 8 MG Vital Signs/I&O 10/20/21 00:35 Temp 36.1 Pulse 97 Resp 20 B/P (MAP) 123/77 (92) Pulse Ox 98 O2 Delivery Room Air Capillary Refill : Progress Note : Time: 01:41 Progress Note Patient states that she still feels a little nauseous however she is able to tolerate sips of fluids. No dry heaving or retching is noted. Her vital signs are stable. I was able to observe adequate heart tones and motion with bedside ultrasound. Her labs have been reviewed, everything is within normal limits. Reassurance is given. Home with Zofran. She has Phenergan suppositories at home. I recommended close follow-up with her [employer] provider at [facility] in [place]. Good return precautions are discussed she verbalized understanding. All questions are sought and answered. Departure Impression Primary Impression: Nausea and vomiting during prior to 22 weeks gestation Disposition: 01 HOME, SELF-CARE Condition: Improved Departure-Patient Inst. Decision time for Depature: 01:42 Referrals: NO,LOCAL PHYSICIAN (PCP/Family) Primary Care Physician Patient Instructions: Morning Sickness ED Add. Discharge Instructions: Follow-up with your OB doctor next week. Take frequent small sips of fluids throughout the day. You should also supplement with Gatorade or other vitamin sosa. Use the Zofran every 8 hours as needed. You can also use your Phenergan suppositories. I would also recommend you get vitamin B6 [id number] and take that daily. All of these will help with your nausea. Return to the emergency department if you are unable to get your nausea and vomiting under control, if you have vaginal bleeding, fever, worsening pain or any other emergent concerning symptoms. ABIMAEL FRANCIS MD October 20, 2021 00:32
[2021-10-20] MEDS ORDERED: ONDANSETRON 4 MG/2 ML (SDV) Z0FRAN IVP ONE (00:45)
[2021-10-20] MEDS ORDERED: LACTATED RINGERS 1,000 ML IV SCH (00:45)
[2021-10-20 00:55] LABS: BILIRUBIN,URINE NEGATIVE (NEGATIVE); CLARITY,URINE CLEAR; COLOR,URINE YELLOW; GLUCOSE, URINE (UA) NEGATIVE (NEGATIVE); KETONES,URINE NEGATIVE (NEGATIVE); LEUKOCYTE ESTERASE ,URINE NEGATIVE (NEGATIVE); NITRITE,URINE NEGATIVE (NEGATIVE); PROTEIN,URINE NEGATIVE (NEGATIVE)
[2021-10-20 01:02] LABS: AMORPHOUS SEDIMENT,UR FEW AMOR PHOSPHATE /LPF; BACTERIA,URINE TRACE /HPF; SQUAMOUS EPITHELIAL CELL,UR 0-2 /HPF
[2021-10-20 01:12] LABS: POTASSIUM 3.6 MMOL/L (3.6-5.0)
[2021-10-20 01:18] LABS: CREATININE SERUM 0.56 MG/DL (0.60-1.30)
[2021-10-20] MEDS ORDERED: RX-ONDANSETRON 4 MG ODT (ZOFRAN) PPK #4 PO STA (01:41)
[2021-10-20 02:03] VITALS: BP 126/74
== END 2021-10-20 02:00 | disposition home or self-care (01) ==
LOC: EDUNIT# 00:06 → ER 00:09
DX: O21.0 Mild hyperemesis gravidarum (principal); O99.211 Obesity complicating pregnancy, first trimester; E66.01 Morbid (severe) obesity due to excess calories; O24.311 Unspecified pre-existing diabetes mellitus in pregnancy, first trimester; Z79.4 Long term (current) use of insulin; Z87.59 Personal history of other complications of pregnancy, childbirth and the puerperium; Z3A.13 13 weeks gestation of pregnancy
CPT/HCPCS: 36415; 80048; 81000

== ENCOUNTER 2021-10-25 15:54 | Emergency (ER) | payer MEDICAID ==
[~2021-10-25] VITALS: Ht 167 cm; Wt 163.0 kg
[2021-10-25] MEDS ORDERED: NS IV 1000 ML 1,000 ML IV STA (16:11)
--- NOTE | 2021-10-25 16:18 | ED GU-Female ---
General Chief Complaint: - Reproductive Stated Complaint: BACK PAIN, FREQUENT URINATING Source: patient Exam Limitations: no limitations History of Present Illness Date Seen by Provider: October 25, 2021 Time Seen by Provider: 16:16 Initial Comments Patient is a 26-year-old female who is 14 weeks who presents to ED with bilateral lower flank pain and urinary symptoms. She reports constant sharp pain bilateral lower back and flank since Thursday. Start developing urinary symptoms with frequent urination and dysuria today. She reports some mild vaginal discharge without any odor. Not concern for sexual chest infection. Patient is G2, P0 with a history of miscarriage. Currently following up with Dr. Allen at [facility] for her PROOFER APPRENTICE care. She has had 4 ultrasounds prior to todays visit that was postivie for intrauterine . Denies of any vaginal bleeding, nausea, vomiting fever, chills, abdominal pain. She states she saw her PROOFER APPRENTICE on Thursday and states they thought the pain was secondary to the and was recommended Tylenol or ibuprofen which she mcneil been taking without improvement. Allergies and Home Medications Allergies Coded Allergies: Penicillins (Unverified Allergy, Unknown, 04/10/15) codeine (Unverified Allergy, Unknown, 04/10/15) olanzapine (Verified Allergy, Unknown, 08/22/21) prochlorperazine (Unverified Allergy, Unknown, 04/10/15) Patient Home Medication List Home Medication List Reviewed: Yes Cephalexin (Cephalexin) 500 Mg Tablet, 500 MG PO BID Prescribed by: PAPO BUTT on 10/25/21 180 Cyclobenzaprine HCl (Cyclobenzaprine HCl) 10 Mg Tablet, (Reported) Entered as Reported by: RHONDA GEORGES on 02/10/2156 Cyclobenzaprine HCl (Cyclobenzaprine HCl) 10 Mg Tablet, 10 MG PO Q8H PRN for SPASMS Prescribed by: MARTY HAGEN on 05/19/2120 Insulin NPH Human Isophane (Novolin N) 100 Unit/1 Ml Vial, (Reported) Entered as Reported by: RHONDA GEORGES on 02/10/2156 Ketorolac Tromethamine (Ketorolac Tromethamine) 10 Mg Tablet, 10 MG PO Q6H Prescribed by: MARTY HAGEN on 05/19/2120 Medroxyprogesterone Acetate (Depo-Provera) 150 Mg/1 Ml Syringe, 150 MG IM, (Reported) Entered as Reported by: SHELLEY MCCLOUD on 08/30/15213 Naproxen (Naproxen) 500 Mg Tablet, 500 MG PO BID Prescribed by: MARTY HAGEN on 08/30/15 023 Omeprazole (Prilosec) 20 Mg Capsule.dr, 20 MG PO DAILY, (Reported) Entered as Reported by: SHELLEY MCCLOUD on 08/30/15213 Ondansetron (Ondansetron Odt) 8 Mg Tab.rapdis, 8 MG PO Q6H Prescribed by: MARTY HAGEN on 05/19/21 0021 Ondansetron (Ondansetron Odt) 8 Mg Tab.rapdis, 8 MG PO Q8H Prescribed by: CHEPE ABERNATHY on 08/22/212151 Prednisone (Prednisone) 20 Mg Tab, (Reported) Entered as Reported by: RHONDA GEORGES on 02/10/21 005 Sertraline HCl (Zoloft) 50 Mg Tablet, 50 MG PO DAILY, (Reported) Entered as Reported by: SHELLEY MCCLOUD on 08/30/15213 Review of Systems Review of Systems Constitutional: No chills, No diaphoresis, No malaise, No weakness EENTM: No ear pain, No blurred vision, No double vision Respiratory: No cough, No dyspnea on exertion, No short of breath Cardiovascular: No chest pain, No edema Gastrointestinal: No abdominal pain, No diarrhea; nausea, vomiting Genitourinary: burning, discharge, flank pain Musculoskeletal: back pain; No joint pain, No muscle pain, No muscle stiffness Skin: No change in color, No change in hair/nails All Other Systemes Reviewed Negative Unless Noted: Yes Past Kifwolr-Ptqouf-Dzisoz Hx Patient Social History Tobacco Use?: Yes Use of E-Cig and/or Vaping Phong: Current Everyday User Substance use?: No Pt feels they are or have been: No Immunizations Up To Date Tetanus Booster (TDap): Less than 5yrs First/Initial COVID19 Vaccinat: 2020 Second COVID19 Vaccination Yann: 2020 Third COVID19 Vaccination Date: 2020 Seasonal Allergies Seasonal Allergies: No Past Medical History Surgery/Hospitalization HX: DM 2, ASTHMA, PCOS, MIGRAINES, SLEEP APNEA Surgeries: Yes (SKIN LESION REMOVED LEFT SHOULDER;RIGHT BREAST BIOPSY X 3;BMT'S) Breast, Ear Surgery, Gallbladder, Tonsillectomy Respiratory: Yes Asthma, Sleep Apnea Currently Using CPAP: No Currently Using BIPAP: No Cardiac: No Neurological: Yes Headaches /Migraines Reproductive Disorders: No Female Reproductive Disorders: Denies Sexually Transmitted Disease: No Genitourinary: No Gastrointestinal: No Musculoskeletal: No Endocrine: Yes (NON COMPLIANT-; MORBID OBESITY) Diabetes, Insulin dep HEENT: Yes Chronic Ear Infection, Tonsilitis Cancer: No Psychosocial: Yes (BORDERLINE PERSONALITY) Anxiety, PTSD, Bipolar, Personality Disorder, Depression Integumentary: Yes Blood Disorders: No Adverse Reaction/Blood Tranf: No Family Medical History No Pertinent Family Hx Physical Exam Vital Signs Vital Signs - First Documented 10/25/21 16:14 Temp 36.5 Pulse 104 Resp 20 B/P (MAP) 130/83 (99) Pulse Ox 98 O2 Delivery Room Air Capillary Refill : Height, Weight, BMI Height: 5'6" Weight: 380lbs. oz. 172.717090zg; 58.00 BMI Method:Stated General Appearance: WD/WN, no apparent distress HEENT: PERRL/EOMI, normal ENT inspection, TMs normal, pharynx normal Neck: non-tender, full range of motion, supple, normal inspection Cardiovascular: regular rate, rhythm, no edema, no gallop, no JVD Respiratory: chest non-tender, lungs clear, normal breath sounds, no respiratory distress, no accessory muscle use Gastrointestinal: normal bowel sounds, non tender, soft, no organomegaly, no pulsatile mass Pelvic: other (patient refused pelvic exam) Back: other (Bilateral lower lumbar paraspinal muscle tenderness. Bilateral flank tenderness) Extremities: normal range of motion, non-tender, normal inspection, no pedal edema Neurologic/Psychiatric: point of care technician II-XII nml as tested, no motor/sensory deficits, alert, normal mood/affect, oriented x 3 Progress/Results/Core Measures Suspected Sepsis SIRS Temperature: Pulse: Respiratory Rate: Laboratory Tests 10/25/21 16:41: White Blood Count 14.5H Blood Pressure / Mean: Laboratory Tests 10/25/21 16:41: Creatinine 0.55L, Platelet Count 298, Total Bilirubin 0.3 Results/Orders Lab Results Laboratory Tests Test 10/25/21 16:19 10/25/21 16:41 10/25/21 17:28 Range/Units Urine Color YELLOW Urine Clarity CLOUDY Urine pH 6.0 5-9 Urine Specific Eldridge >=1.030 1.016-1.022 Urine Protein TRACE H NEGATIVE Urine Glucose (UA) NEGATIVE NEGATIVE Urine Ketones NEGATIVE NEGATIVE Urine Nitrite NEGATIVE NEGATIVE Urine Bilirubin NEGATIVE NEGATIVE Urine Urobilinogen 0.2 < = 1.0 MG/DL Urine Leukocyte Esterase TRACE H NEGATIVE Urine RBC (Auto) NEGATIVE NEGATIVE Urine RBC 0-2 /HPF Urine WBC 10-25 H /HPF Urine Squamous Epithelial Cells 5-10 /HPF Urine Crystals NONE /LPF Urine Bacteria NEGATIVE /HPF Urine Casts NONE /LPF Urine Mucus NEGATIVE /LPF Urine Culture Indicated YES White Blood Count 14.5 H 4.3-11.0 10^3/uL Red Blood Count 4.67 3.80-5.11 10^6/uL Hemoglobin 13.5 11.5-16.0 g/dL Hematocrit 40 35-52 % Mean Corpuscular Volume 85 80-99 fL Mean Corpuscular Hemoglobin 29 25-34 pg Mean Corpuscular Hemoglobin Concent 34 32-36 g/dL Red Cell Distribution Width 13.2 10.0-14.5 % Platelet Count 298 130-400 10^3/uL Mean Platelet Volume 10.0 9.0-12.2 fL Immature Granulocyte % (Auto) 1 % Neutrophils (%) (Auto) 76 H 42-75 % Lymphocytes (%) (Auto) 17 12-44 % Monocytes (%) (Auto) 5 0-12 % Eosinophils (%) (Auto) 2 0-10 % Basophils (%) (Auto) 0 0-10 % Neutrophils # (Auto) 11.0 H 1.8-7.8 10^3/uL Lymphocytes # (Auto) 2.5 1.0-4.0 10^3/uL Monocytes # (Auto) 0.7 0.0-1.0 10^3/uL Eosinophils # (Auto) 0.2 0.0-0.3 10^3/uL Basophils # (Auto) 0.0 0.0-0.1 10^3/uL Immature Granulocyte # (Auto) 0.1 0.0-0.1 10^3/uL Neutrophils % (Manual) 74 % Lymphocytes % (Manual) 22 % Monocytes % (Manual) 4 % Eosinophils % (Manual) 0 % Basophils % (Manual) 0 % Band Neutrophils 0 % Blood Morphology Comment NORMAL Sodium Level 137 135-145 MMOL/L Potassium Level 3.6 3.6-5.0 MMOL/L Chloride Level 109 H 98-107 MMOL/L Carbon Dioxide Level 19 L 21-32 MMOL/L Anion Gap 9 5-14 MMOL/L Blood Urea Nitrogen 8 7-18 MG/DL Creatinine 0.55 L 0.60-1.30 MG/DL Estimat Glomerular Filtration Rate 130 BUN/Creatinine Ratio 15 Glucose Level 103 70-105 MG/DL Calcium Level 9.0 8.5-10.1 MG/DL Corrected Calcium 9.4 8.5-10.1 MG/DL Total Bilirubin 0.3 0.1-1.0 MG/DL Aspartate Amino Transf (AST/SGOT) 15 5-34 U/L Alanine Aminotransferase (ALT/SGPT) 22 0-55 U/L Alkaline Phosphatase 64 40-136 U/L Total Protein 6.8 6.4-8.2 GM/DL Albumin 3.5 3.2-4.5 GM/DL Human Chorionic Gonadotropin, Quant 31201 H <5 MIU/ML Micro Results Microbiology 10/25/21 Wet Prep - Final, Complete My Orders Orders - JAYLYN RAMIREZ Ua Culture If Indicated (10/25/21 16:07) Cbc With Automated Diff (10/25/21 16:11) Comprehensive Metabolic Panel (10/25/21 16:11) Wet Prep (10/25/21 16:11) Hcg,Quantitative (10/25/21 16:11) Ns Iv 1000 Ml (Sodium Chloride 0.9%) (10/25/21 16:11) Heart Tones (10/25/21 16:11) Morphine Injection (Morphine Injection (10/25/21 17:00) Urine Culture (10/25/21 16:19) Ceftriaxone 1 Gm Pre-Mix (Rocephin 1 Gm (10/25/21 16:59) Manual Differential (10/25/21 16:41) Chlamydia Trachomatis Swab (10/25/21 17:42) Neisseria Gonorrhea Swab (10/25/21 17:42) Medications Given in ED Vital Signs/I&O Capillary Refill : Departure Communication (PCP) Patient with bilateral lower flank pain and urinary symptoms. Flank pain and lower back pain since Thursday. Sharp pain without radiation. No history of kidney stones. Urinalysis was positive for infection., Lower pelvic pain. Wet mount positive for vaginal yeast. Denies of any vaginal bleeding not concern for sexual transmitted infection and was not treated prophylactically. Swabs pending. History of intrauterine with positive ultrasounds. Currently following up with Dr. Allen at [facility]. Patient Was seen on Thursday without any current complaints. Slight elevated white blood count which may be associated with the versus infection. Patient was slightly tachycardic but afebrile. Patient was given a liter of fluid. Urinalysis positive for UTI was given Rocephin. Normal kidney function. No evidence of hematuria. Unlikely ureterolithiasis or nephrolithiasis bilateral. If this pain progress may consider ultrasound of her kidneys to rule out hydronephrosis, nephrolithiasis. discussed with patient this is likely secondary to UTI versus pain. Bedside ultrasound showed cardiac activity with heart tones of 148. No vaginal bleeding, abdominal pain, pelvic pain suggesting concern for miscarriage. No surgical abdomen. No abdominal tenderness. Patient was requesting something stronger than Tylenol. Discussed risks with narcotics with potential defects patient acknowledge and was requesting something stronger for pain. She was given morphine at a lose for therapeutic. Resolution of pain. Will discharge with Keflex. Continue with Tylenol. Discussed hydration. She does have antiemetics at home. Follow-up with your PROOFER APPRENTICE within 4 to 5 days for reevaluation. Discussed topical [id number] vaginal cream with miconazole or clotrimazole for yeast. Impression Primary Impression: UTI (urinary tract infection) Disposition: HOME, SELF-CARE Condition: Stable Departure-Patient Inst. Decision time for Depature: 18:08 Referrals: NO,LOCAL PHYSICIAN (PCP/Family) Primary Care Physician Patient Instructions: Urinary Tract Infection, Adult (DC) Add. Discharge Instructions: Take antibiotics as prescribed. May continue taking Tylenol. Follow-up with your PROOFER APPRENTICE and 4 to 5 days for reevaluation. If any worsening symptoms return back to ED. All discharge instructions reviewed with patient and/or family. Voiced understanding. Scripts Cephalexin (Cephalexin) 500 Mg Tablet 500 MG PO BID for 10 Days, #20 TAB Prov: JAYLYN RAMIREZ 10/25/21 JAYLYN RAMIREZ October 25, 2021 16:18
[2021-10-25 16:26] LABS: BILIRUBIN,URINE NEGATIVE (NEGATIVE); CLARITY,URINE CLOUDY; COLOR,URINE YELLOW; GLUCOSE, URINE (UA) NEGATIVE (NEGATIVE); KETONES,URINE NEGATIVE (NEGATIVE); LEUKOCYTE ESTERASE ,URINE TRACE (NEGATIVE); NITRITE,URINE NEGATIVE (NEGATIVE); PROTEIN,URINE TRACE (NEGATIVE)
[2021-10-25 16:53] LABS: BASOPHILS % (AUTO) 0 % (0-10); EOSINOPHILS # (AUTO) 0.2 10^3/uL (0.0-0.3); EOSINOPHILS % (AUTO) 2 % (0-10); HEMATOCRIT 40 % (35-52); HEMOGLOBIN 13.5 g/dL (11.5-16.0); LYMPHOCYTES # (AUTO) 2.5 10^3/uL (1.0-4.0); LYMPHOCYTES % (AUTO) 17 % (12-44); MEAN CORPUSCULAR HEMOGLOBIN 29 pg (25-34); MEAN CORPUSCULAR HGB CONC 34 g/dL (32-36); MEAN CORPUSCULAR VOLUME 85 fL (80-99); MONOCYTES # (AUTO) 0.7 10^3/uL (0.0-1.0); MONOCYTES % (AUTO) 5 % (0-12); NEUTROPHILS % (AUTO) 76 % (42-75); PLATELET COUNT 298 10^3/uL (130-400); WHITE BLOOD COUNT 14.5 10^3/uL (4.3-11.0)
[2021-10-25 16:54] LABS: BACTERIA,URINE NEGATIVE /HPF; RBC,URINE 0-2 /HPF
[2021-10-25] MEDS ORDERED: cefTRIAXone 1 GM PRE-MIX 50 ML IV STA (16:59)
[2021-10-25] MEDS ORDERED: morphine INJ 10 MG/ML 1ML (SYR OR VIAL) IVP ONE (17:00)
[2021-10-25 17:09] LABS: BAND NEUTROPHILS 0 %; BASOPHILS % (MANUAL) 0 %; EOSINOPHILS % (MANUAL) 0 %; LYMPHOCYTES % (MANUAL) 22 %; MONOCYTES % (MANUAL) 4 %; NEUTROPHILS % (MANUAL) 74 %; RBC MORPH NORMAL
[2021-10-25 17:14] LABS: ALBUMIN 3.5 GM/DL (3.2-4.5); POTASSIUM 3.6 MMOL/L (3.6-5.0)
[2021-10-25 17:17] LABS: TOTAL PROTEIN 6.8 GM/DL (6.4-8.2)
[2021-10-25 17:18] LABS: BILIRUBIN,TOTAL 0.3 MG/DL (0.1-1.0)
[2021-10-25 17:20] LABS: CREATININE SERUM 0.55 MG/DL (0.60-1.30)
[2021-10-25] MEDS ORDERED: CEPH500T PO (18:09)
[2021-10-25 18:17] VITALS: BP 123/68
== END 2021-10-25 18:17 | disposition home or self-care (01) ==
LOC: EDUNIT# 15:54 → ER 15:58
DX: O23.42 Unspecified infection of urinary tract in pregnancy, second trimester (principal); N39.0 Urinary tract infection, site not specified; O24.312 Unspecified pre-existing diabetes mellitus in pregnancy, second trimester; O99.212 Obesity complicating pregnancy, second trimester; E66.01 Morbid (severe) obesity due to excess calories; O99.332 Smoking (tobacco) complicating pregnancy, second trimester; F17.290 Nicotine dependence, other tobacco product, uncomplicated; Z87.59 Personal history of other complications of pregnancy, childbirth and the puerperium; Z91.14 Patient's other noncompliance with medication regimen; Z79.4 Long term (current) use of insulin; Z3A.14 14 weeks gestation of pregnancy
CPT/HCPCS: 36415; 80053; 81000; 84702; 85007; 85027; 87077; 87088; 87210; 87491; 87591

== ENCOUNTER 2021-11-19 15:26 | Emergency (ER) | payer BC, MEDICAID ==
[~2021-11-19] VITALS: Ht 170.1 cm; Wt 161.0 kg
[~2021-11-19 15:26] MED LIST changes: +CEPH500T PO
[2021-11-19] MEDS ORDERED: fentaNYL INJ 100 MCG/2 ML AMP IVP ONE (17:00)
[2021-11-19] MEDS ORDERED: LACTATED RINGERS 1,000 ML IV ONE (17:00)
[2021-11-19] MEDS ORDERED: PROMETHAZINE INJ 25 MG/ML (PHENERGAN) AMP IVP ONE (17:00)
--- NOTE | 2021-11-19 17:42 | ED Headache ---
General Chief Complaint: Head/Cervical Problems Stated Complaint: HEADACHE Nursing Triage Note: Migraine started yesterday, typically takes migraine medication however she is at this time. tooktylenol at 0200 this am and Midol around 1030 however pain is still a 8/10. Source: patient Exam Limitations: no limitations History of Present Illness Date Seen by Provider: Nov 19, 2021 Time Seen by Provider: 16:50 Allergies and Home Medications Allergies Coded Allergies: Penicillins (Unverified Allergy, Unknown, 04/10/15) codeine (Unverified Allergy, Unknown, 04/10/15) olanzapine (Verified Allergy, Unknown, 08/22/21) prochlorperazine (Unverified Allergy, Unknown, 04/10/15) Patient Home Medication List Cephalexin (Cephalexin) 500 Mg Tablet, 500 MG PO BID Prescribed by: PAPO BUTT on 10/25/211808 Cyclobenzaprine HCl (Cyclobenzaprine HCl) 10 Mg Tablet, (Reported) Entered as Reported by: RHONDA GEORGES on 02/10/2156 Cyclobenzaprine HCl (Cyclobenzaprine HCl) 10 Mg Tablet, 10 MG PO Q8H PRN for SPASMS Prescribed by: MARTY HAGEN on 05/19/2120 Insulin NPH Human Isophane (Novolin N) 100 Unit/1 Ml Vial, (Reported) Entered as Reported by: RHONDA GEORGES on 02/10/2156 Ketorolac Tromethamine (Ketorolac Tromethamine) 10 Mg Tablet, 10 MG PO Q6H Prescribed by: MARTY HAGEN on 05/19/2120 Medroxyprogesterone Acetate (Depo-Provera) 150 Mg/1 Ml Syringe, 150 MG IM, (Reported) Entered as Reported by: SHELLEY MCCLOUD on 08/30/15213 Naproxen (Naproxen) 500 Mg Tablet, 500 MG PO BID Prescribed by: MARTY HAGEN on 08/30/15235 Omeprazole (Prilosec) 20 Mg Capsule.dr, 20 MG PO DAILY, (Reported) Entered as Reported by: SHELLEY MCCLOUD on 08/30/15213 Ondansetron (Ondansetron Odt) 8 Mg Tab.rapdis, 8 MG PO Q6H Prescribed by: MARTY HAGEN on 12/19/21 0021 Ondansetron (Ondansetron Odt) 8 Mg Tab.rapdis, 8 MG PO Q8H Prescribed by: CHEPE ABERNATHY on 08/22/212151 Prednisone (Prednisone) 20 Mg Tab, (Reported) Entered as Reported by: RHONDA GEORGES on 02/10/21 0057 Sertraline HCl (Zoloft) 50 Mg Tablet, 50 MG PO DAILY, (Reported) Entered as Reported by: SHELLEY MCCLOUD on 08/30/15 0214 Review of Systems Review of Systems Expected Date of Delivery: Apr 27, 2022 Past Qyflqux-Tglvps-Gcbtta Hx Patient Social History Tobacco Use?: No Use of E-Cig and/or Vaping dev: Yes E-Cig or Vaping type used: Nicotine Substance use?: No Alcohol Use?: No Pt feels they are or have been: No Immunizations Up To Date Tetanus Booster (TDap): Less than 5yrs First/Initial COVID19 Vaccinat: 2020 Second COVID19 Vaccination Yann: 2020 Third COVID19 Vaccination Date: 2020 COVID19 Vaccine 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: meQuilibrium Seasonal Allergies Seasonal Allergies: No Past Medical History Surgery/Hospitalization HX: DM 2, ASTHMA, PCOS, MIGRAINES, SLEEP APNEA Surgeries: Yes (SKIN LESION REMOVED LEFT SHOULDER;RIGHT BREAST BIOPSY X 3;BMT'S) Breast, Ear Surgery, Gallbladder, Tonsillectomy Respiratory: Yes Asthma, Sleep Apnea Currently Using CPAP: No Currently Using BIPAP: No Cardiac: No Neurological: Yes Headaches /Migraines Expected Date of Delivery: Apr 27, 2022 Reproductive Disorders: No Female Reproductive Disorders: Denies Sexually Transmitted Disease: No Genitourinary: No Gastrointestinal: No Musculoskeletal: No Endocrine: Yes (NON COMPLIANT-; MORBID OBESITY) Diabetes, Insulin dep HEENT: Yes Chronic Ear Infection, Tonsilitis Cancer: No Psychosocial: Yes (BORDERLINE PERSONALITY) Anxiety, PTSD, Bipolar, Personality Disorder, Depression Integumentary: Yes Blood Disorders: No Adverse Reaction/Blood Tranf: No Family Medical History No Pertinent Family Hx Physical Exam Vital Signs Vital Signs - First Documented 11/19/21 15:35 Temp 36.9 Pulse 101 Resp 18 B/P (MAP) 122/79 (93) Pulse Ox 97 O2 Delivery Room Air Capillary Refill : Less Than 3 Seconds Height, Weight, BMI Height: 5'6" Weight: 380lbs. oz. 172.563608ic; 55.00 BMI Method:Stated Progress/Results/Core Measures Results/Orders Lab Results Laboratory Tests Test 11/19/21 18:04 Range/Units Sodium Level 138 135-145 MMOL/L Potassium Level 3.4 L 3.6-5.0 MMOL/L Chloride Level 108 H 98-107 MMOL/L Carbon Dioxide Level 23 21-32 MMOL/L Anion Gap 7 5-14 MMOL/L Blood Urea Nitrogen 6 L 7-18 MG/DL Creatinine 0.54 L 0.60-1.30 MG/DL Estimat Glomerular Filtration Rate 131 BUN/Creatinine Ratio 11 Glucose Level 68 L 70-105 MG/DL Calcium Level 8.7 8.5-10.1 MG/DL Magnesium Level 1.8 1.6-2.4 MG/DL My Orders Orders - SEDA CASIANO MD Promethazine Injection (Phenergan Injec (11/19/21 17:00) Ed Iv/Invasive Line Start (11/19/21 16:59) Lactated Ringers (Lr 1000 Ml Iv Solution (11/19/21 17:00) Fentanyl Inj (Sublimaze Injection) (11/19/21 17:00) Basic Metabolic Panel (11/19/21 16:59) Magnesium (11/19/21 16:59) General/Regular (11/19/21 Dinner) Medications Given in ED Current Medications Medications Dose Ordered Sig/Russ Route Start Time Stop Time Status Last Admin Dose Admin Fentanyl Citrate 50 mcg ONCE ONCE IVP 11/19/21 17:00 11/19/21 17:01 DC 11/19/21 17:30 50 MCG Lactated Ringer's 1,000 ml @ 0 mls/hr Q0M ONCE IV 11/19/21 17:00 11/19/21 17:01 DC 11/19/21 17:26 1,000 MLS/HR Promethazine HCl 25 mg ONCE ONCE IVP 11/19/21 17:00 11/19/21 17:01 DC 11/19/21 17:26 25 MG Vital Signs/I&O 11/19/21 15:35 Temp 36.9 Pulse 101 Resp 18 B/P (MAP) 122/79 (93) Pulse Ox 97 O2 Delivery Room Air Blood Pressure Mean: 93 Progress Progress Note : Time: 18:33 Progress Note Patient is feeling much better after receiving Phenergan, fentanyl, and IV fluids. However, her blood sugar is slightly low at 68. I offered D50 versus oral sugar. She requested juice. We will get her some juice and then check her blood sugar. Assuming she is stable, she will be discharged home. She was offered Toradol for further treatment of her pain which she declined. Departure Impression Primary Impression: Migraine headache Qualified Codes: G43.009 - Migraine without aura, not intractable, without status migrainosus Additional Impressions: Nausea and vomiting during prior to 22 weeks gestation Qualified Codes: Z3A.17 - 17 weeks gestation of Disposition: HOME, SELF-CARE Condition: Improved Departure-Patient Inst. Decision time for Depature: 18:26 Referrals: NO,LOCAL PHYSICIAN (PCP/Family) Primary Care Physician Patient Instructions: Migraines in Adults Add. Discharge Instructions: Drink plenty of clear liquids to stay well-hydrated. Gradually advance your diet with small quantities of bland food as tolerated. You may use Tylenol (acetaminophen) up to 1000 mg every 6 hours as needed to treat headache. You may use Phenergan (promethazine) as previously directed for nausea and vomiting. Discuss other possible treatments for migraines with your primary care provider and/or your medical claims assistant so that you are prepared to should the situation arise again. Check your blood sugar when you return home and monitor your blood sugar closely over the next couple of days. You may need to reduce your insulin doses by 10 to 20% if your intake of carbohydrates is lower than normal. Return to care if you have worsening symptoms not resolved with instructions above. All discharge instructions reviewed with patient and/or family. Voiced understanding. SEDA CASIANO MD Nov 19, 2021 17:42
[2021-11-19 18:16] LABS: POTASSIUM 3.4 MMOL/L (3.6-5.0)
[2021-11-19 18:17] LABS: CALCIUM 8.7 MG/DL (8.5-10.1)
[2021-11-19 18:22] LABS: CREATININE SERUM 0.54 MG/DL (0.60-1.30)
[2021-11-19 18:24] LABS: MAGNESIUM 1.8 MG/DL (1.6-2.4)
[2021-11-19 19:07] VITALS: BP 126/68
== END 2021-11-19 19:07 | disposition home or self-care (01) ==
LOC: EDUNIT# 15:26 → ER 15:29
DX: O99.350 Diseases of the nervous system complicating pregnancy, unspecified trimester (principal); G43.909 Migraine, unspecified, not intractable, without status migrainosus; O99.330 Smoking (tobacco) complicating pregnancy, unspecified trimester; F17.290 Nicotine dependence, other tobacco product, uncomplicated; Z3A.00 Weeks of gestation of pregnancy not specified
CPT/HCPCS: 36415; 80048; 82947; 83735

== ENCOUNTER 2021-11-30 16:25 | Emergency (ER) | payer BC, MEDICAID ==
[~2021-11-30] VITALS: Ht 167.7 cm; Wt 166.0 kg
[2021-11-30 16:30] VITALS: BP 119/80
[2021-11-30] MEDS ORDERED: NS IV 1000 ML 1,000 ML IV STA (16:56)
[2021-11-30] MEDS ORDERED: METOCLOPRAMIDE INJ 10 MG/2 ML (REGLAN) IVP ONE (17:15)
--- NOTE | 2021-11-30 17:22 | ED General ---
General Chief Complaint: Dizziness/Syncope Stated Complaint: THOMAS,DIZZINESS,19 WEEKS PREG Source of Information: Patient Exam Limitations: No Limitations History of Present Illness Date Seen by Provider: Nov 30, 2021 Time Seen by Provider: 17:18 Initial Comments Patient is a 26-year-old female who is a G2, P0 presents ED with dizziness and head pain. Dizziness started after 2:00. She reports a fairly quick onset. Feels like the room spinning and has been for the most part constant. Worse with walking. Denies of any hearing changes, ear ringing, visual loss, facial droop, unilateral muscle weakness or sensory changes. She also reports some mild head discomfort described as more as throbbing. History of migraines states this feels different. She also has sensitivity to light. She is currently 19 weeks . History of diabetes and hypertension. Currently on insulin and takes aspirin. Patient is following [employer] at [facility]. She denies of any current chest pain, shortness of breath, abdominal pain, diarrhea, vaginal bleeding, dysuria, hematuria. Patient on arrival was normal tensive with stable vital signs. She did vomited twice with current photophobia. Allergies and Home Medications Allergies Coded Allergies: Penicillins (Unverified Allergy, Unknown, 11/30/21) codeine (Unverified Allergy, Unknown, 11/30/21) olanzapine (Verified Allergy, Unknown, 11/30/21) prochlorperazine (Unverified Allergy, Unknown, 11/30/21) Patient Home Medication List Home Medication List Reviewed: Yes Cephalexin (Cephalexin) 500 Mg Tablet, 500 MG PO BID Prescribed by: PAPO BUTT on 10/25/21 180 Cyclobenzaprine HCl (Cyclobenzaprine HCl) 10 Mg Tablet, (Reported) Entered as Reported by: RHONDA GEORGES on 02/10/2156 Cyclobenzaprine HCl (Cyclobenzaprine HCl) 10 Mg Tablet, 10 MG PO Q8H PRN for SPASMS Prescribed by: MARTY HAGEN on 05/19/21 0021 Insulin NPH Human Isophane (Novolin N) 100 Unit/1 Ml Vial, (Reported) Entered as Reported by: RHONDA GEORGES on 02/10/2156 Ketorolac Tromethamine (Ketorolac Tromethamine) 10 Mg Tablet, 10 MG PO Q6H Prescribed by: MARTY HAGEN on 05/19/2120 Medroxyprogesterone Acetate (Depo-Provera) 150 Mg/1 Ml Syringe, 150 MG IM, (Reported) Entered as Reported by: SHELLEY MCCLOUD on 08/30/15213 Naproxen (Naproxen) 500 Mg Tablet, 500 MG PO BID Prescribed by: MARTY HAGEN on 08/30/15 023 Omeprazole (Prilosec) 20 Mg Capsule.dr, 20 MG PO DAILY, (Reported) Entered as Reported by: SHELLEY MCCLOUD on 08/30/15213 Ondansetron (Ondansetron Odt) 8 Mg Tab.rapdis, 8 MG PO Q6H Prescribed by: MARTY HAGEN on 05/19/2120 Ondansetron (Ondansetron Odt) 8 Mg Tab.rapdis, 8 MG PO Q8H Prescribed by: CHEPE ABERNATHY on 08/22/212151 Prednisone (Prednisone) 20 Mg Tab, (Reported) Entered as Reported by: RHONDA GEORGES on 02/10/2156 Sertraline HCl (Zoloft) 50 Mg Tablet, 50 MG PO DAILY, (Reported) Entered as Reported by: SHELLEY MCCLOUD on 08/30/15213 Review of Systems Review of Systems Constitutional: No chills, No diaphoresis; malaise, weakness EENTM: other (Photophobia); No blurred vision, No double vision, No mouth pain, No mouth swelling, No throat swelling Respiratory: No cough, No dyspnea on exertion Cardiovascular: No chest pain Gastrointestinal: No abdominal pain, No diarrhea; nausea, vomiting Genitourinary: No decreased output, No discharge Musculoskeletal: No back pain, No joint pain Skin: No change in color, No change in hair/nails Psychiatric/Neurological: Headache, Other (dizziness) All Other Systems Reviewed Negative Unless Noted: Yes Past Ouyqxgj-Epxndm-Zxenuo Hx Immunizations Up To Date Tetanus Booster (TDap): Less than 5yrs First/Initial COVID19 Vaccinat: 2020 Second COVID19 Vaccination Yann: 2020 Third COVID19 Vaccination Date: 2020 Seasonal Allergies Seasonal Allergies: No Past Medical History Surgery/Hospitalization HX: DM 2, ASTHMA, PCOS, MIGRAINES, SLEEP APNEA Surgeries: Yes (SKIN LESION REMOVED LEFT SHOULDER;RIGHT BREAST BIOPSY X 3;BMT'S) Breast, Ear Surgery, Gallbladder, Tonsillectomy Respiratory: Yes Asthma, Sleep Apnea Currently Using CPAP: No Currently Using BIPAP: No Cardiac: No Neurological: Yes Headaches /Migraines Reproductive Disorders: No Female Reproductive Disorders: Denies Sexually Transmitted Disease: No Genitourinary: No Gastrointestinal: No Musculoskeletal: No Endocrine: Yes (NON COMPLIANT-; MORBID OBESITY) Diabetes, Insulin dep HEENT: Yes Chronic Ear Infection, Tonsilitis Cancer: No Psychosocial: Yes (BORDERLINE PERSONALITY) Anxiety, PTSD, Bipolar, Personality Disorder, Depression Integumentary: Yes Blood Disorders: No Adverse Reaction/Blood Tranf: No Family Medical History No Pertinent Family Hx Physical Exam Vital Signs Vital Signs - First Documented 11/30/21 16:30 Temp 36.9 Pulse 101 Resp 18 B/P (MAP) 119/80 (93) Pulse Ox 98 O2 Delivery Room Air Capillary Refill : Height, Weight, BMI Height: 5'6" Weight: 380lbs. oz. 172.996463dw; 55.00 BMI Method:Stated General Appearance: No Apparent Distress, WD/WN Eyes: Bilateral Eye Normal Inspection, Bilateral Eye PERRL, Bilateral Eye EOMI HEENT: PERRL/EOMI, TMs Normal, Normal ENT Inspection, Pharynx Normal Neck: Full Range of Motion, Normal Inspection, Non Tender, Supple Respiratory: Chest Non Tender, Lungs Clear, Normal Breath Sounds, No Accessory Muscle Use, No Respiratory Distress Cardiovascular: Regular Rate, Rhythm, No Edema, No Gallop, No JVD Gastrointestinal: Normal Bowel Sounds, No Organomegaly, No Pulsatile Mass, Non Tender Extremity: Normal Capillary Refill, Normal Inspection, Normal Range of Motion, Non Tender Neurologic/Psychiatric: Alert, Oriented x3, No Motor/Sensory Deficits, Normal 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, 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 Norm as Tested Skin: Normal Color, Warm/Dry Progress/Results/Core Measures Suspected Sepsis SIRS Temperature: Pulse: Respiratory Rate: Laboratory Tests 11/30/21 17:05: White Blood Count 15.0H Blood Pressure / Mean: Laboratory Tests 11/30/21 17:05: Creatinine 0.55L, Platelet Count 293, Total Bilirubin 0.3 Results/Orders Lab Results Laboratory Tests Test 11/30/21 17:05 11/30/21 17:55 11/30/21 18:50 Range/Units White Blood Count 15.0 H 4.3-11.0 10^3/uL Red Blood Count 4.24 3.80-5.11 10^6/uL Hemoglobin 12.0 11.5-16.0 g/dL Hematocrit 36 35-52 % Mean Corpuscular Volume 86 80-99 fL Mean Corpuscular Hemoglobin 28 25-34 pg Mean Corpuscular Hemoglobin Concent 33 32-36 g/dL Red Cell Distribution Width 14.2 10.0-14.5 % Platelet Count 293 130-400 10^3/uL Mean Platelet Volume 10.0 9.0-12.2 fL Immature Granulocyte % (Auto) 1 % Neutrophils (%) (Auto) 75 42-75 % Lymphocytes (%) (Auto) 16 12-44 % Monocytes (%) (Auto) 5 0-12 % Eosinophils (%) (Auto) 2 0-10 % Basophils (%) (Auto) 0 0-10 % Neutrophils # (Auto) 11.3 H 1.8-7.8 10^3/uL Lymphocytes # (Auto) 2.4 1.0-4.0 10^3/uL Monocytes # (Auto) 0.8 0.0-1.0 10^3/uL Eosinophils # (Auto) 0.3 0.0-0.3 10^3/uL Basophils # (Auto) 0.0 0.0-0.1 10^3/uL Immature Granulocyte # (Auto) 0.1 0.0-0.1 10^3/uL Neutrophils % (Manual) 68 % Lymphocytes % (Manual) 20 % Monocytes % (Manual) 4 % Eosinophils % (Manual) 3 % Basophils % (Manual) 0 % Band Neutrophils 5 % Blood Morphology Comment NORMAL Sodium Level 138 135-145 MMOL/L Potassium Level 3.4 L 3.6-5.0 MMOL/L Chloride Level 108 H 98-107 MMOL/L Carbon Dioxide Level 20 L 21-32 MMOL/L Anion Gap 10 5-14 MMOL/L Blood Urea Nitrogen 6 L 7-18 MG/DL Creatinine 0.55 L 0.60-1.30 MG/DL Estimat Glomerular Filtration Rate 130 BUN/Creatinine Ratio 11 Glucose Level 93 70-105 MG/DL Calcium Level 8.8 8.5-10.1 MG/DL Corrected Calcium 9.4 8.5-10.1 MG/DL Total Bilirubin 0.3 0.1-1.0 MG/DL Aspartate Amino Transf (AST/SGOT) 12 5-34 U/L Alanine Aminotransferase (ALT/SGPT) 17 0-55 U/L Alkaline Phosphatase 66 40-136 U/L Total Protein 6.3 L 6.4-8.2 GM/DL Albumin 3.3 3.2-4.5 GM/DL Human Chorionic Gonadotropin, Quant 78127 H <5 MIU/ML Influenza Type A (RT-PCR) Not Detected Not Detecte Influenza Type B (RT-PCR) Not Detected Not Detecte SARS-CoV-2 RNA (RT-PCR) Not Detected Not Detecte Urine Color YELLOW Urine Clarity CLEAR Urine pH 6.0 5-9 Urine Specific [place] >=1.030 1.016-1.022 Urine Protein NEGATIVE NEGATIVE Urine Glucose (UA) NEGATIVE NEGATIVE Urine Ketones NEGATIVE NEGATIVE Urine Nitrite NEGATIVE NEGATIVE Urine Bilirubin NEGATIVE NEGATIVE Urine Urobilinogen 0.2 < = 1.0 MG/DL Urine Leukocyte Esterase NEGATIVE NEGATIVE Urine RBC (Auto) NEGATIVE NEGATIVE Urine RBC 0-2 /HPF Urine WBC 0-2 /HPF Urine Squamous Epithelial Cells 0-2 /HPF Urine Crystals PRESENT H /LPF Urine Calcium Oxalate Crystals FEW H /LPF Urine Bacteria TRACE /HPF Urine Casts NONE /LPF Urine Mucus LARGE H /LPF Urine Culture Indicated NO My Orders Orders - JAYLYN RAMIREZ Cbc With Automated Diff (11/30/21 16:56) Comprehensive Metabolic Panel (11/30/21 16:56) Hcg,Quantitative (11/30/21 16:56) Ns Iv 1000 Ml (Sodium Chloride 0.9%) (11/30/21 16:56) Metoclopramide Injection (Reglan Injecti (11/30/21 17:15) Manual Differential (11/30/21 17:05) Covid 19 Inhouse Test (11/30/21 17:38) Influenza A And B By Pcr (11/30/21 17:38) Ua Culture If Indicated (11/30/21 17:57) Medications Given in ED Vital Signs/I&O 11/30/21 16:30 Temp 36.9 Pulse 101 Resp 18 B/P (MAP) 119/80 (93) Pulse Ox 98 O2 Delivery Room Air Capillary Refill : Departure Communication (PCP) Patient on arrival complaining of dizziness and head discomfort. History of migraines but states this feels different. Patient neuro exam unremarkable. No visual loss. Appropriate strength without evidence of weakness in the extremities. No sensory changes. Patient was not hypertensive and had stable vital signs. Vomited twice today. Patient Wwas given a liter fluid and Reglan with complete resolution of her symptoms. Patient denies chest pain, shortness of breath, abdominal pain, vaginal bleeding. She is currently 19 weeks . Urinalysis negative for infection. Once again she denies of any vaginal bleeding. Patient beta quant 13,000. She is a high risk with her history of hypertension not currently on blood pressure medication and diabetic. She is currently on insulin. Normal blood sugar. She was given a liter of fluid here. Lab work was otherwise reassuring. Patient ambulated with steady gait. She states dizziness completely resolved. No ear ringing, hearing loss. Patient request to be discharged. Provided work note. On exam she did not have any appreciation of nystagmus with emily florence pike. Due to resolution of symptoms without any focal neural deficits patient will be discharged. Patient without any strokelike symptoms or meningeal signs. she thinks she was dehydrated. Continue monitoring symptoms. If any worsening symptoms return ba ck to ED for further evaluation. Impression Primary Impression: Dizziness Additional Impression: Disposition: 01 HOME, SELF-CARE Condition: Stable Departure-Patient Inst. Decision time for Depature: 19:12 Referrals: NO,LOCAL PHYSICIAN (PCP) Primary Care Physician MAURICE RANDALL APRN (Family) Primary Care Physician Patient Instructions: Dizziness, Adult ED Add. Discharge Instructions: Continue monitoring blood pressure and blood sugar. Recommend oral hydration. If any worsening symptoms return back to ED for further evaluation. All discharge instructions reviewed with patient and/or family. Voiced understanding. JAYLYN RAMIREZ Nov 30, 2021 17:22
[2021-11-30 17:27] LABS: BASOPHILS % (AUTO) 0 % (0-10); EOSINOPHILS # (AUTO) 0.3 10^3/uL (0.0-0.3); EOSINOPHILS % (AUTO) 2 % (0-10); HEMATOCRIT 36 % (35-52); LYMPHOCYTES # (AUTO) 2.4 10^3/uL (1.0-4.0); LYMPHOCYTES % (AUTO) 16 % (12-44); MEAN CORPUSCULAR HEMOGLOBIN 28 pg (25-34); MEAN CORPUSCULAR HGB CONC 33 g/dL (32-36); MEAN CORPUSCULAR VOLUME 86 fL (80-99); MONOCYTES # (AUTO) 0.8 10^3/uL (0.0-1.0); MONOCYTES % (AUTO) 5 % (0-12); NEUTROPHILS # (AUTO) 11.3 10^3/uL (1.8-7.8); NEUTROPHILS % (AUTO) 75 % (42-75); PLATELET COUNT 293 10^3/uL (130-400)
[2021-11-30 17:33] LABS: ALBUMIN 3.3 GM/DL (3.2-4.5); POTASSIUM 3.4 MMOL/L (3.6-5.0)
[2021-11-30 17:34] LABS: CALCIUM 8.8 MG/DL (8.5-10.1)
[2021-11-30 17:36] LABS: TOTAL PROTEIN 6.3 GM/DL (6.4-8.2)
[2021-11-30 17:37] LABS: BILIRUBIN,TOTAL 0.3 MG/DL (0.1-1.0)
[2021-11-30 17:39] LABS: CREATININE SERUM 0.55 MG/DL (0.60-1.30)
[2021-11-30 17:57] LABS: BAND NEUTROPHILS 5 %; BASOPHILS % (MANUAL) 0 %; EOSINOPHILS % (MANUAL) 3 %; LYMPHOCYTES % (MANUAL) 20 %; MONOCYTES % (MANUAL) 4 %; NEUTROPHILS % (MANUAL) 68 %; RBC MORPH NORMAL
[2021-11-30 18:57] LABS: BILIRUBIN,URINE NEGATIVE (NEGATIVE); CLARITY,URINE CLEAR; COLOR,URINE YELLOW; GLUCOSE, URINE (UA) NEGATIVE (NEGATIVE); KETONES,URINE NEGATIVE (NEGATIVE); LEUKOCYTE ESTERASE ,URINE NEGATIVE (NEGATIVE); NITRITE,URINE NEGATIVE (NEGATIVE); PROTEIN,URINE NEGATIVE (NEGATIVE)
[2021-11-30 19:05] LABS: BACTERIA,URINE TRACE /HPF; CALCIUM OXALATE CRYSTALS,UR FEW /LPF; RBC,URINE 0-2 /HPF; SQUAMOUS EPITHELIAL CELL,UR 0-2 /HPF; WBC,URINE 0-2 /HPF
== END 2021-11-30 19:22 | disposition home or self-care (01) ==
LOC: EDUNIT# 16:25 → ER 16:27
DX: O26.812 Pregnancy related exhaustion and fatigue, second trimester (principal); R42 Dizziness and giddiness; O24.312 Unspecified pre-existing diabetes mellitus in pregnancy, second trimester; O10.912 Unspecified pre-existing hypertension complicating pregnancy, second trimester; Z20.822 Contact with and (suspected) exposure to COVID-19; Z79.4 Long term (current) use of insulin; Z3A.19 19 weeks gestation of pregnancy
CPT/HCPCS: 36415; 80053; 81000; 84702; 85007; 85027; 87636

== ENCOUNTER 2021-12-10 20:59 | Emergency (ER) | payer BC, MEDICAID ==
[2021-12-10 21:19] VITALS: BP 112/58
--- NOTE | 2021-12-10 21:44 | ED General ---
General Chief Complaint: Glucose Problems Stated Complaint: HIGH BLOOD SUGAR Nursing Triage Note: PT REPORTS BLOOD SUGAR WAS 48 @ 1800. REPORTS SHE DRANK JUICE AND ATE. REPORTS SHE VOMITED AFTER EATING. REPORTS RECHECK OF BLOOD SUGAR @ 2014 WAS 165. REPORTS SHE WAS CONCERNED THAT 165 WAS TO HIGH. REPORTS SHE NOW HAS A H/A AND FEELS SLIGHTLY LIGHT HEADED. BLOOD SUGAR HERE IS 133. Source of Information: Patient Exam Limitations: No Limitations History of Present Illness Date Seen by Provider: Dec 10, 2021 Time Seen by Provider: 21:41 Initial Comments Patient is a 26-year-old female who is G2, P0 presents ED with hypoglycemia. Patient states that she checked her blood sugar around 6. She was feeling fatigued. Blood sugar was around 48. She ate peanut butter jelly and tater tots and rechecked her blood sugar 2 hours later which read 165. She was will continue having fatigue and dizziness. The symptoms are continue proving. 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 Was recommended come to ED. Currently on insulin, aspirin. History of diabetes and hypertension. She denies of any nausea, vomit, diarrhea, abdominal pain, vaginal bleeding or urinary symptoms, headache, visual changes. Allergies and Home Medications Allergies Coded Allergies: Penicillins (Unverified Allergy, Unknown, 11/30/21) codeine (Unverified Allergy, Unknown, 11/30/21) olanzapine (Verified Allergy, Unknown, 11/30/21) prochlorperazine (Unverified Allergy, Unknown, 11/30/21) Patient Home Medication List Home Medication List Reviewed: Yes Cephalexin (Cephalexin) 500 Mg Tablet, 500 MG PO BID Prescribed by: PAPO BUTT on 10/25/211808 Cyclobenzaprine HCl (Cyclobenzaprine HCl) 10 Mg Tablet, (Reported) Entered as Reported by: RHONDA GEORGES on 02/10/2156 Cyclobenzaprine HCl (Cyclobenzaprine HCl) 10 Mg Tablet, 10 MG PO Q8H PRN for SPASMS Prescribed by: MARTY HAGEN on 05/19/21 002 Insulin NPH Human Isophane (Novolin N) 100 Unit/1 Ml Vial, (Reported) Entered as Reported by: RHONDA GEORGES on 02/10/2156 Ketorolac Tromethamine (Ketorolac Tromethamine) 10 Mg Tablet, 10 MG PO Q6H Prescribed by: MARTY HAGEN on 05/19/21 002 Medroxyprogesterone Acetate (Depo-Provera) 150 Mg/1 Ml Syringe, 150 MG IM, (Reported) Entered as Reported by: SHELLEY MCCLOUD on 08/30/15213 Naproxen (Naproxen) 500 Mg Tablet, 500 MG PO BID Prescribed by: MARTY HAGEN on 08/30/15 023 Omeprazole (Prilosec) 20 Mg Capsule.dr, 20 MG PO DAILY, (Reported) Entered as Reported by: SHELLEY MCCLOUD on 08/30/15213 Ondansetron (Ondansetron Odt) 8 Mg Tab.rapdis, 8 MG PO Q6H Prescribed by: MARTY HAGEN on 05/19/2120 Ondansetron (Ondansetron Odt) 8 Mg Tab.rapdis, 8 MG PO Q8H Prescribed by: CHEPE ABERNATHY on 08/22/212151 Prednisone (Prednisone) 20 Mg Tab, (Reported) Entered as Reported by: RHONDA GEORGES on 02/10/2156 Sertraline HCl (Zoloft) 50 Mg Tablet, 50 MG PO DAILY, (Reported) Entered as Reported by: SHELLEY MCCLOUD on 08/30/15213 Review of Systems Review of Systems Constitutional: No chills, No diaphoresis; malaise, weakness EENTM: No blurred vision, No double vision Respiratory: No cough, No dyspnea on exertion Cardiovascular: No chest pain Gastrointestinal: No abdominal pain, No diarrhea, No nausea, No vomiting Expected Date of Delivery: Apr 27, 2022 Musculoskeletal: No back pain, No joint pain Skin: No change in color, No change in hair/nails Psychiatric/Neurological: Denies Anxiety, Denies Depressed All Other Systems Reviewed Negative Unless Noted: Yes Past Uxepwec-Bglmuk-Ivknek Hx Patient Social History Use of E-Cig and/or Vaping dev: Yes Use of E-Cig and/or Vaping Phong: Current Everyday User Substance use?: No Alcohol Use?: No Pt feels they are or have been: No Immunizations Up To Date Tetanus Booster (TDap): Less than 5yrs Influenza Vaccine Up-to-Date: No; Not Current First/Initial COVID19 Vaccinat: UNKNOWN DATE Second COVID19 Vaccination Yann: UNKNOWN DATE Third COVID19 Vaccination Date: 2020 Seasonal Allergies Seasonal Allergies: No Past Medical History Surgery/Hospitalization HX: DM 2, ASTHMA, PCOS, MIGRAINES, SLEEP APNEA Surgeries: Yes (SKIN LESION REMOVED LEFT SHOULDER;RIGHT BREAST BIOPSY X 3;BMT'S) Breast, Ear Surgery, Gallbladder, Tonsillectomy Respiratory: Yes Asthma, Sleep Apnea Currently Using CPAP: No Currently Using BIPAP: No Cardiac: No Neurological: Yes Headaches /Migraines Expected Date of Delivery: Apr 27, 2022 Reproductive Disorders: No Female Reproductive Disorders: Denies Sexually Transmitted Disease: No Genitourinary: No Gastrointestinal: No Musculoskeletal: No Endocrine: Yes (NON COMPLIANT-; MORBID OBESITY) Diabetes, Insulin dep HEENT: Yes Chronic Ear Infection, Tonsilitis Cancer: No Psychosocial: Yes (BORDERLINE PERSONALITY) Anxiety, PTSD, Bipolar, Personality Disorder, Depression Integumentary: Yes Blood Disorders: No Adverse Reaction/Blood Tranf: No Family Medical History No Pertinent Family Hx Physical Exam Vital Signs Vital Signs - First Documented 12/10/21 21:19 Temp 36.8 Pulse 103 Resp 18 B/P (MAP) 112/58 (76) Pulse Ox 97 Capillary Refill : Height, Weight, BMI Height: 5'6" Weight: 380lbs. oz. 172.557010vz; 59.00 BMI Method:Stated General Appearance: No Apparent Distress, WD/WN Eyes: Bilateral Eye Normal Inspection, Bilateral Eye PERRL, Bilateral Eye EOMI HEENT: PERRL/EOMI, TMs Normal, Normal ENT Inspection, Pharynx Normal Neck: Full Range of Motion, Normal Inspection, Non Tender, Supple Respiratory: Chest Non Tender, Lungs Clear, Normal Breath Sounds, No Accessory Muscle Use, No Respiratory Distress Cardiovascular: Regular Rate, Rhythm, No Edema, No Gallop, No JVD, No Murmur Gastrointestinal: Normal Bowel Sounds, No Organomegaly, No Pulsatile Mass, Non Tender Extremity: Normal Capillary Refill, Normal Inspection, Normal Range of Motion, Non Tender Neurologic/Psychiatric: Other (dizziness) Skin: Normal Color, Warm/Dry Progress/Results/Core Measures Suspected Sepsis SIRS Temperature: Pulse: 103 Respiratory Rate: 18 Laboratory Tests 12/10/21 21:45: White Blood Count 18.6H Blood Pressure 112 /58 Mean: 76 Laboratory Tests 12/10/21 21:45: Creatinine 0.51L, Platelet Count 279, Total Bilirubin 0.2 Results/Orders Lab Results Laboratory Tests Test 12/10/21 21:17 12/10/21 21:45 12/10/21 21:55 12/10/21 21:56 Range/Units Glucometer 133 H 125 H 70-110 MG/DL White Blood Count 18.6 H 4.3-11.0 10^3/uL Red Blood Count 4.11 3.80-5.11 10^6/uL Hemoglobin 11.7 11.5-16.0 g/dL Hematocrit 35 35-52 % Mean Corpuscular Volume 85 80-99 fL Mean Corpuscular Hemoglobin 29 25-34 pg Mean Corpuscular Hemoglobin Concent 33 32-36 g/dL Red Cell Distribution Width 14.1 10.0-14.5 % Platelet Count 279 130-400 10^3/uL Mean Platelet Volume 10.1 9.0-12.2 fL Immature Granulocyte % (Auto) 1 % Neutrophils (%) (Auto) 75 42-75 % Lymphocytes (%) (Auto) 16 12-44 % Monocytes (%) (Auto) 5 0-12 % Eosinophils (%) (Auto) 2 0-10 % Basophils (%) (Auto) 0 0-10 % Neutrophils # (Auto) 14.0 H 1.8-7.8 10^3/uL Lymphocytes # (Auto) 3.0 1.0-4.0 10^3/uL Monocytes # (Auto) 0.9 0.0-1.0 10^3/uL Eosinophils # (Auto) 0.4 H 0.0-0.3 10^3/uL Basophils # (Auto) 0.1 0.0-0.1 10^3/uL Immature Granulocyte # (Auto) 0.2 H 0.0-0.1 10^3/uL Neutrophils % (Manual) 79 % Lymphocytes % (Manual) 15 % Monocytes % (Manual) 3 % Eosinophils % (Manual) 1 % Atypical Lymphocytes 2 % Blood Morphology Comment NORMAL Sodium Level 137 135-145 MMOL/L Potassium Level 3.5 L 3.6-5.0 MMOL/L Chloride Level 108 H 98-107 MMOL/L Carbon Dioxide Level 18 L 21-32 MMOL/L Anion Gap 11 5-14 MMOL/L Blood Urea Nitrogen 7 7-18 MG/DL Creatinine 0.51 L 0.60-1.30 MG/DL Estimat Glomerular Filtration Rate 133 BUN/Creatinine Ratio 14 Glucose Level 132 H 70-105 MG/DL Calcium Level 9.0 8.5-10.1 MG/DL Corrected Calcium 9.6 8.5-10.1 MG/DL Total Bilirubin 0.2 0.1-1.0 MG/DL Aspartate Amino Transf (AST/SGOT) 13 5-34 U/L Alanine Aminotransferase (ALT/SGPT) 13 0-55 U/L Alkaline Phosphatase 74 40-136 U/L Total Protein 6.4 6.4-8.2 GM/DL Albumin 3.3 3.2-4.5 GM/DL Urine Color YELLOW Urine Clarity CLEAR Urine pH 5.5 5-9 Urine Specific [place] >=1.030 1.016-1.022 Urine Protein NEGATIVE NEGATIVE Urine Glucose (UA) TRACE H NEGATIVE Urine Ketones NEGATIVE NEGATIVE Urine Nitrite NEGATIVE NEGATIVE Urine Bilirubin NEGATIVE NEGATIVE Urine Urobilinogen 0.2 < = 1.0 MG/DL Urine Leukocyte Esterase NEGATIVE NEGATIVE Urine RBC (Auto) NEGATIVE NEGATIVE Urine RBC NONE /HPF Urine WBC 0-2 /HPF Urine Squamous Epithelial Cells 0-2 /HPF Urine Crystals PRESENT H /LPF Urine Calcium Oxalate Crystals LARGE H /LPF Urine Bacteria TRACE /HPF Urine Casts NONE /LPF Urine Mucus SMALL H /LPF Urine Culture Indicated NO My Orders Orders - JAYLYN RAMIREZ Cbc With Automated Diff (12/10/21 21:22) Comprehensive Metabolic Panel (12/10/21 21:22) Accucheck Stat ONCE (12/10/21 21:22) Urinalysis (12/10/21 21:33) Manual Differential (12/10/21 21:45) Vital Signs/I&O 12/10/21 21:19 Temp 36.8 Pulse 103 Resp 18 B/P (MAP) 112/58 (76) Pulse Ox 97 Capillary Refill : Blood Pressure Mean: 76 Departure Communication (PCP) Patient type II diabetic currently on insulin. Blood sugar on arrival was 125 with lab work. She does not appear in DKA. No vomiting. Symptoms improved. Symptoms likely secondary to low blood sugar but appeared to improved after she ate. Blood sugar continues to trend downward. Continue monitoring blood sugar at home. She has no abdominal pain, vaginal bleeding. Urinalysis was negative for infection. 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 F etal cardiac activity bedside Doppler 145. Patient is not hypertensive. Patient with a steady gait. No headache, visual changes or urinary symptoms. Impression Primary Impression: Hyperglycemia Disposition: 01 HOME, SELF-CARE Condition: Stable Departure-Patient Inst. Decision time for Depature: 22:40 Referrals: NO,LOCAL PHYSICIAN (PCP) Primary Care Physician MAURICE RANDALL APRN (Family) Primary Care Physician Patient Instructions: Type 2 Diabetes (DC) Add. 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 Continue monitoring your blood sugar All discharge instructions reviewed with patient and/or family. Voiced understanding. JAYLYN RAMIREZ Dec 10, 2021 21:44
[2021-12-10 21:58] LABS: BASOPHILS # (AUTO) 0.1 10^3/uL (0.0-0.1); BASOPHILS % (AUTO) 0 % (0-10); EOSINOPHILS # (AUTO) 0.4 10^3/uL (0.0-0.3); EOSINOPHILS % (AUTO) 2 % (0-10); HEMATOCRIT 35 % (35-52); HEMOGLOBIN 11.7 g/dL (11.5-16.0); LYMPHOCYTES % (AUTO) 16 % (12-44); MEAN CORPUSCULAR HEMOGLOBIN 29 pg (25-34); MEAN CORPUSCULAR HGB CONC 33 g/dL (32-36); MEAN CORPUSCULAR VOLUME 85 fL (80-99); MEAN PLATELET VOLUME 10.1 fL (9.0-12.2); MONOCYTES # (AUTO) 0.9 10^3/uL (0.0-1.0); MONOCYTES % (AUTO) 5 % (0-12); NEUTROPHILS % (AUTO) 75 % (42-75); PLATELET COUNT 279 10^3/uL (130-400); WHITE BLOOD COUNT 18.6 10^3/uL (4.3-11.0)
[2021-12-10 22:09] LABS: ALBUMIN 3.3 GM/DL (3.2-4.5); POTASSIUM 3.5 MMOL/L (3.6-5.0)
[2021-12-10 22:11] LABS: BILIRUBIN,URINE NEGATIVE (NEGATIVE); CLARITY,URINE CLEAR; COLOR,URINE YELLOW; GLUCOSE, URINE (UA) TRACE (NEGATIVE); KETONES,URINE NEGATIVE (NEGATIVE); LEUKOCYTE ESTERASE ,URINE NEGATIVE (NEGATIVE); NITRITE,URINE NEGATIVE (NEGATIVE); PH,URINE 5.5 (5-9); PROTEIN,URINE NEGATIVE (NEGATIVE)
[2021-12-10 22:12] LABS: TOTAL PROTEIN 6.4 GM/DL (6.4-8.2)
[2021-12-10 22:14] LABS: BILIRUBIN,TOTAL 0.2 MG/DL (0.1-1.0)
[2021-12-10 22:15] LABS: CREATININE SERUM 0.51 MG/DL (0.60-1.30)
[2021-12-10 22:15] LABS: BACTERIA,URINE TRACE /HPF; CALCIUM OXALATE CRYSTALS,UR LARGE /LPF; SQUAMOUS EPITHELIAL CELL,UR 0-2 /HPF; WBC,URINE 0-2 /HPF
[2021-12-10 22:20] LABS: ATYPICAL LYMPHOCYTES 2 %; EOSINOPHILS % (MANUAL) 1 %; LYMPHOCYTES % (MANUAL) 15 %; MONOCYTES % (MANUAL) 3 %; NEUTROPHILS % (MANUAL) 79 %; RBC MORPH NORMAL
== END 2021-12-10 22:51 | disposition home or self-care (01) ==
LOC: EDUNIT# 20:59 → ER 21:04
DX: E11.65 Type 2 diabetes mellitus with hyperglycemia (principal); E66.01 Morbid (severe) obesity due to excess calories; F17.290 Nicotine dependence, other tobacco product, uncomplicated; Z79.4 Long term (current) use of insulin; Z68.43 Body mass index [BMI] 50.0-59.9, adult
CPT/HCPCS: 36415; 80053; 81000; 82947; 85007; 85027

== ENCOUNTER 2021-12-23 02:41 | Emergency (ER) | payer BC, MEDICAID ==
[~2021-12-23] VITALS: Ht 167.7 cm; Wt 167.2 kg
--- NOTE | 2021-12-23 03:24 | ED General ---
General Chief Complaint: Dizziness/Syncope Stated Complaint: MIGRAINE,DIZZY,VOMITING,22 WKS PREG Nursing Triage Note: PT ARRIVAL TO ER WITH COMPLAINT OF MIGRAINE X2 DAYS. PT STATES THAT SHE NORMALLY TAKES A MIGRAINE MEDICINE, BUT DUE TO BEING ITS NOT SAFE. PT HAS TRIED TYLENOL AND ICE PACKS AT HOME WITHOUT RELIEF. Source of Information: Patient Exam Limitations: No Limitations History of Present Illness Date Seen by Provider: Dec 23, 2021 Time Seen by Provider: 03:12 Initial Comments Patient is a 26-year-old who presents to the emergency department today with a chief complaint of migraine behind her eyes over the last 2 days. She states it is pretty typical of her normal headaches. She has taken Tylenol and arop-nfs-mvudhjh "headache relief" without any resolution of her headache. She states that light and sound make her headache worse. Laying down and cold washcloths make her feel a little bit better. She is nauseous and has had decreased appetite over the last couple of days. She has been blowing green snot and was concerned she might be developing a sinus infection. No fevers or chills. She does vape. She is encouraged to quit. She is a . Has had 1 prior with a miscarriage at 5 weeks. She is approximately 22-2/7 weeks with an estimated due date of April 27. She gets her care at [facility] in [facility]. She also complains of some foul-smelling urine over the last couple of days. No dysuria or abnormal vaginal discharge. No bleeding or spotting. She is a diabetic on insulin. All other review of systems reviewed and negative except as stated. Timing/Duration: 1-2 Days Severity: Moderate Associated Systoms: Headaches, Loss of Appetite, Malaise Allergies and Home Medications Allergies Coded Allergies: Penicillins (Unverified Allergy, Unknown, 11/30/21) codeine (Unverified Allergy, Unknown, 11/30/21) olanzapine (Verified Allergy, Unknown, 11/30/21) prochlorperazine (Unverified Allergy, Unknown, 11/30/21) Patient Home Medication List Home Medication List Reviewed: Yes Cephalexin (Cephalexin) 500 Mg Tablet, 500 MG PO BID Prescribed by: PAPO BUTT on 10/25/21 9363 Cyclobenzaprine HCl (Cyclobenzaprine HCl) 10 Mg Tablet, (Reported) Entered as Reported by: RHONDA GEORGES on 02/10/2156 Cyclobenzaprine HCl (Cyclobenzaprine HCl) 10 Mg Tablet, 10 MG PO Q8H PRN for SPASMS Prescribed by: MARTY HAGEN on 05/19/2120 Insulin NPH Human Isophane (Novolin N) 100 Unit/1 Ml Vial, (Reported) Entered as Reported by: RHONDA GEORGES on 02/10/2156 Ketorolac Tromethamine (Ketorolac Tromethamine) 10 Mg Tablet, 10 MG PO Q6H Prescribed by: MARTY HAGEN on 05/19/2120 Medroxyprogesterone Acetate (Depo-Provera) 150 Mg/1 Ml Syringe, 150 MG IM, (Reported) Entered as Reported by: SHELLEY MCCLOUD on 08/30/15213 Naproxen (Naproxen) 500 Mg Tablet, 500 MG PO BID Prescribed by: MARTY HAGEN on 08/30/15235 Omeprazole (Prilosec) 20 Mg Capsule.dr, 20 MG PO DAILY, (Reported) Entered as Reported by: SHELLEY MCCLOUD on 08/30/15213 Ondansetron (Ondansetron Odt) 8 Mg Tab.rapdis, 8 MG PO Q6H Prescribed by: MARTY HAGEN on 05/19/2120 Ondansetron (Ondansetron Odt) 8 Mg Tab.rapdis, 8 MG PO Q8H Prescribed by: CHEPE ABERNATHY on 08/22/212151 Prednisone (Prednisone) 20 Mg Tab, (Reported) Entered as Reported by: RHONDA GEORGES on 02/10/2156 Sertraline HCl (Zoloft) 50 Mg Tablet, 50 MG PO DAILY, (Reported) Entered as Reported by: SHELLEY MCCLOUD on 08/30/15213 Review of Systems Review of Systems Constitutional: see HPI EENTM: nose congestion (green nasal discharge) Respiratory: no symptoms reported Cardiovascular: no symptoms reported Gastrointestinal: no symptoms reported Genitourinary: other (abnormal urine smell) Musculoskeletal: no symptoms reported Skin: no symptoms reported Psychiatric/Neurological: Headache All Other Systems Reviewed Negative Unless Noted: Yes Past Gyajzdw-Mbdecf-Vbepgc Hx Patient Social History Tobacco Use?: No Use of E-Cig and/or Vaping dev: Yes E-Cig or Vaping type used: Nicotine Use of E-Cig and/or Vaping Phong: Current Everyday User Substance use?: No Alcohol Use?: No Pt feels they are or have been: No Immunizations Up To Date Tetanus Booster (TDap): Less than 5yrs Influenza Vaccine Up-to-Date: No; Not Current First/Initial COVID19 Vaccinat: UNKNOWN DATE Second COVID19 Vaccination Yann: UNKNOWN DATE Third COVID19 Vaccination Date: UNKNOWN DATE Seasonal Allergies Seasonal Allergies: No Past Medical History Surgery/Hospitalization HX: DM 2, ASTHMA, PCOS, MIGRAINES, SLEEP APNEA Surgeries: Yes (SKIN LESION REMOVED LEFT SHOULDER;RIGHT BREAST BIOPSY X 3;BMT'S) Breast, Ear Surgery, Gallbladder, Tonsillectomy Respiratory: Yes Asthma, Sleep Apnea Currently Using CPAP: No Currently Using BIPAP: No Cardiac: No Neurological: Yes Headaches /Migraines Reproductive Disorders: No Female Reproductive Disorders: Denies Sexually Transmitted Disease: No Genitourinary: No Gastrointestinal: No Musculoskeletal: No Endocrine: Yes (NON COMPLIANT-; MORBID OBESITY) Diabetes, Insulin dep HEENT: Yes Chronic Ear Infection, Tonsilitis Cancer: No Psychosocial: Yes (BORDERLINE PERSONALITY) Anxiety, PTSD, Bipolar, Personality Disorder, Depression Integumentary: Yes Blood Disorders: No Adverse Reaction/Blood Tranf: No Family Medical History No Pertinent Family Hx Physical Exam Vital Signs Vital Signs - First Documented 12/23/21 03:16 Temp 36.8 Pulse 87 Resp 18 B/P (MAP) 112/68 (83) Pulse Ox 97 O2 Delivery Room Air Capillary Refill : Less Than 3 Seconds Height, Weight, BMI Height: 5'6" Weight: 380lbs. oz. [id number]; 59.00 BMI Method:Stated General Appearance: No Apparent Distress, WD/WN Eyes: Bilateral Eye Normal Inspection, Bilateral Eye PERRL, Bilateral Eye EOMI HEENT: PERRL/EOMI, Other (tenderness of maxiallry and frontal sinuses; no swe lling or erythema; no nasal discharge noted) Neck: Full Range of Motion, Normal Inspection, Non Tender, Supple Respiratory: Lungs Clear, Normal Breath Sounds, No Accessory Muscle Use, No Respiratory Distress Cardiovascular: Regular Rate, Rhythm Back: Normal Inspection Extremity: Normal Inspection, Normal Range of Motion Neurologic/Psychiatric: Alert, Oriented x3, No Motor/Sensory Deficits, Normal 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, 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 Norm as Tested Skin: Normal Color, Warm/Dry Progress/Results/Core Measures Suspected Sepsis SIRS Temperature: Pulse: 87 Respiratory Rate: 18 Blood Pressure 112 /68 Mean: 83 Results/Orders Lab Results Laboratory Tests Test 12/23/21 03:37 12/23/21 03:39 Range/Units Glucometer 106 70-110 MG/DL Urine Color YELLOW Urine Clarity CLEAR Urine pH 7.0 5-9 Urine Specific [place] 1.020 1.016-1.022 Urine Protein NEGATIVE NEGATIVE Urine Glucose (UA) NEGATIVE NEGATIVE Urine Ketones NEGATIVE NEGATIVE Urine Nitrite NEGATIVE NEGATIVE Urine Bilirubin NEGATIVE NEGATIVE Urine Urobilinogen 0.2 < = 1.0 MG/DL Urine Leukocyte Esterase NEGATIVE NEGATIVE Urine RBC (Auto) NEGATIVE NEGATIVE Urine RBC NONE /HPF Urine WBC NONE /HPF Urine Squamous Epithelial Cells 2-5 /HPF Urine Crystals NONE /LPF Urine Bacteria MODERATE H /HPF Urine Casts NONE /LPF Urine Mucus NEGATIVE /LPF Urine Culture Indicated YES My Orders Orders - ABIMAEL FRANCIS MD Ua Culture If Indicated (12/23/21 03:21) Ed Iv/Invasive Line Start (12/23/21 03:21) Metoclopramide Injection (Reglan Injecti (12/23/21 03:30) Diphenhydramine Injection (Benadryl Inje (12/23/21 03:30) Ns Iv 1000 Ml (Sodium Chloride 0.9%) (12/23/21 03:30) Accucheck Stat ONCE (12/23/21 03:24) Heart Tones (12/23/21 03:24) Urine Culture (12/23/21 03:39) Medications Given in ED Current Medications Medications Dose Ordered Sig/Russ Route Start Time Stop Time Status Last Admin Dose Admin Diphenhydramine HCl 25 mg ONCE ONCE IVP 12/23/21 03:30 12/23/21 03:31 DC 12/23/21 03:47 25 MG Metoclopramide HCl 10 mg ONCE ONCE IVP 12/23/21 03:30 12/23/21 03:31 DC 12/23/21 03:47 10 MG Vital Signs/I&O 12/23/21 03:16 Temp 36.8 Pulse 87 Resp 18 B/P (MAP) 112/68 (83) Pulse Ox 97 O2 Delivery Room Air Capillary Refill : Less Than 3 Seconds Blood Pressure Mean: 83 Progress Note : Time: 04:11 Progress Note Feels much better. Headache relieved. FHT 156. Has had half a liter of fluids. Desires discharge. Departure Impression Primary Impression: Headache Qualified Codes: G44.209 - Tension-type headache, unspecified, not intractable Additional Impression: 22 weeks gestation of Disposition: 01 HOME, SELF-CARE Condition: Improved Departure-Patient Inst. Decision time for Depature: 04:12 Referrals: MIKEY,LOCAL PHYSICIAN (PCP) Primary Care Physician MAURICE RANDALL APRN (Family) Primary Care Physician Patient Instructions: Headache, Adult Add. Discharge Instructions: Drink plenty of fluids to stay well-hydrated. You can take extra strength Tylenol, 2 tablets every 6 hours as needed for pain. 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 Return to the emergency department for any new, concerning or emergent complaints. ABIMAEL FRANCIS MD Dec 23, 2021 03:24
[2021-12-23] MEDS ORDERED: diphenhydrAMINE 50 MG/ML INJ (BENADRYL) IVP ONE (03:30)
[2021-12-23] MEDS ORDERED: METOCLOPRAMIDE INJ 10 MG/2 ML (REGLAN) IVP ONE (03:30)
[2021-12-23] MEDS ORDERED: NS IV 1000 ML 1,000 ML IV SCH (03:30)
[2021-12-23 03:48] LABS: BILIRUBIN,URINE NEGATIVE (NEGATIVE); CLARITY,URINE CLEAR; COLOR,URINE YELLOW; GLUCOSE, URINE (UA) NEGATIVE (NEGATIVE); KETONES,URINE NEGATIVE (NEGATIVE); LEUKOCYTE ESTERASE ,URINE NEGATIVE (NEGATIVE); NITRITE,URINE NEGATIVE (NEGATIVE); PROTEIN,URINE NEGATIVE (NEGATIVE)
[2021-12-23 03:55] LABS: BACTERIA,URINE MODERATE /HPF
[2021-12-23 04:37] VITALS: BP 130/77
== END 2021-12-23 04:36 | disposition home or self-care (01) ==
LOC: EDUNIT# 02:41 → ER 02:44
DX: O29.42 Spinal and epidural anesthesia induced headache during pregnancy, second trimester (principal); O99.212 Obesity complicating pregnancy, second trimester; O24.112 Pre-existing type 2 diabetes mellitus, in pregnancy, second trimester; O99.332 Smoking (tobacco) complicating pregnancy, second trimester; F17.290 Nicotine dependence, other tobacco product, uncomplicated; Z79.4 Long term (current) use of insulin; Z87.59 Personal history of other complications of pregnancy, childbirth and the puerperium; Z3A.22 22 weeks gestation of pregnancy
CPT/HCPCS: 81000; 82947; 87088

== ENCOUNTER 2022-01-03 14:49 | Outpatient (CLI) | payer BC, MEDICAID ==
[~2022-01-03] VITALS: Ht 167.7 cm; Wt 167.2 kg
[2022-01-03 15:15] VITALS: BP 105/56
[2022-01-03 15:29] LABS: BILIRUBIN,URINE NEGATIVE (NEGATIVE); CLARITY,URINE CLEAR; COLOR,URINE YELLOW; GLUCOSE, URINE (UA) TRACE (NEGATIVE); KETONES,URINE NEGATIVE (NEGATIVE); LEUKOCYTE ESTERASE ,URINE NEGATIVE (NEGATIVE); NITRITE,URINE NEGATIVE (NEGATIVE); PH,URINE 6.5 (5-9); PROTEIN,URINE NEGATIVE (NEGATIVE)
[2022-01-03 15:41] LABS: BACTERIA,URINE MODERATE /HPF; GRANULAR CASTS,URINE 0-2 /LPF; WBC,URINE 0-2 /HPF
--- NOTE | 2022-01-06 09:02 | Physician Query-Final Dx ---
Clinic Account Progress/Dx Physician Query: Please give diagnosis Please include # weeks gestation Date of Service Jan 03, 2022 at 14:49 EVARISTO,JunJan 06, 2022 09:02
== END 2022-01-03 16:25 | disposition home or self-care (01) ==
LOC: WSo 14:49 → LDRP 14:51 → WSo 16:25
PROVIDERS: ATTEND Family Medicine
DX: O26.859 Spotting complicating pregnancy, unspecified trimester (principal); O26.899 Other specified pregnancy related conditions, unspecified trimester; R25.2 Cramp and spasm; Z3A.00 Weeks of gestation of pregnancy not specified
CPT/HCPCS: 81000; 87088; 99213

== ENCOUNTER 2022-02-16 14:32 | Outpatient (CLI) | payer BC, MEDICAID ==
[~2022-02-16] VITALS: Ht 167.7 cm; Wt 168.6 kg
[2022-02-16 14:59] LABS: BILIRUBIN,URINE NEGATIVE (NEGATIVE); CLARITY,URINE CLEAR; COLOR,URINE YELLOW; GLUCOSE, URINE (UA) 2+ (NEGATIVE); KETONES,URINE NEGATIVE (NEGATIVE); LEUKOCYTE ESTERASE ,URINE NEGATIVE (NEGATIVE); NITRITE,URINE NEGATIVE (NEGATIVE); PH,URINE 6.5 (5-9); PROTEIN,URINE NEGATIVE (NEGATIVE)
[2022-02-16 15:07] VITALS: BP 134/62
[2022-02-16 15:10] LABS: BACTERIA,URINE TRACE /HPF; WBC,URINE RARE /HPF
[2022-02-16 15:11] LABS: HYALINE CASTS, URINE RARE /LPF; SQUAMOUS EPITHELIAL CELL,UR 0-2 /HPF
--- NOTE | 2022-02-17 08:35 | Physician Query-Final Dx ---
EVARISTO02/17/22 0835: Clinic Account Progress/Dx Physician Query: Please give diagnosis Please include # weeks gestation Date of Service Feb 16, 2022 at 14:32 EDSON BROWN MD 02/17/22 0839: Clinic Account Progress/Dx DIAGNOSIS: Diagnosis 30 weeks gestation with decreased movement EVARISTO,JunFeb 17, 2022 08:35 EDSON BROWN MD Feb 17, 2022 08:39
== END 2022-02-16 15:22 | disposition home or self-care (01) ==
LOC: WSo 14:32 → LDRP 14:32 → WSo 15:22
PROVIDERS: ATTEND Obstetrics & Gynecology
DX: O36.8130 Decreased fetal movements, third trimester, not applicable or unspecified (principal); Z3A.30 30 weeks gestation of pregnancy
CPT/HCPCS: 81000

== ENCOUNTER 2022-08-03 20:13 | Emergency (ER) | payer BC, MEDICAID ==
[~2022-08-03] VITALS: Ht 167.7 cm; Wt 164.7 kg
[2022-08-03] MEDS ORDERED: NS IV 1000 ML 1,000 ML IV STA (21:01)
[2022-08-03 21:03] LABS: BILIRUBIN,URINE NEGATIVE (NEGATIVE); CLARITY,URINE SL CLOUDY; COLOR,URINE ORANGE; GLUCOSE, URINE (UA) TRACE (NEGATIVE); KETONES,URINE NEGATIVE (NEGATIVE); LEUKOCYTE ESTERASE ,URINE NEGATIVE (NEGATIVE); NITRITE,URINE NEGATIVE (NEGATIVE); PROTEIN,URINE TRACE (NEGATIVE)
[2022-08-03] MEDS ORDERED: ONDANSETRON 4 MG/2 ML (SDV) Z0FRAN IVP ONE (21:15)
[2022-08-03 21:23] LABS: BACTERIA,URINE NEGATIVE /HPF
--- NOTE | 2022-08-03 21:26 | ED General ---
General Chief Complaint: COVID19 Suspect/Confirmed Stated Complaint: CONGESTION - VOMTIING - DIARRHEA - DIZZY Nursing Triage Note: PT AMB TO ED BY POV WITH C/O N/V/D BEGINNING YESTERDAY MORNING. PT REPORTS SHE ATE SONIC APPROX 1 [employer] WITH NO EMESIS, BUT HAS CONTINUED TO HAVE DIARRHEA. REPORTS ABD CRAMPING WITH DIARRHEA. DENIES FEVER. Source of Information: Patient Exam Limitations: No Limitations History of Present Illness Date Seen by Provider: Aug 03, 2022 Time Seen by Provider: 20:33 Initial Comments Here with report of nausea, vomiting and diarrhea that started yesterday morning and has persisted through today. She is diabetic and does take insulin and states her blood sugars have run in the 260 range which is pretty close to normal for her. She states that she went to work at [employer] yesterday but had to leave early and did the same today and also had to leave early due to nausea, vomiting and diarrhea. Last vomiting episode was earlier today but she has had a few episodes of diarrhea. She did eat Sonic about an hour prior to arrival and has not vomited that to this point. Has had some nasal congestion but no body aches. Does report headache. Denies dysuria. Timing/Duration: 1-2 Days Severity: Moderate Associated Systoms: No Chest Pain, No Cough, No Fever/Chills; Nausea/Vomiting; No Shortness of Air; Weakness Allergies and Home Medications Allergies Coded Allergies: Penicillins (Unverified Allergy, Unknown, 11/30/21) codeine (Unverified Allergy, Unknown, 11/30/21) olanzapine (Verified Allergy, Unknown, 11/30/21) prochlorperazine (Unverified Allergy, Unknown, 11/30/21) Patient Home Medication List Home Medication List Reviewed: Yes Insulin NPH Human Isophane (Novolin N) 100 Unit/1 Ml Vial, (Reported) Entered as Reported by: RHONDA GEORGES on 02/10/21 0057 Ondansetron (Ondansetron Odt) 4 Mg Tab.rapdis, 4 MG PO Q6H PRN for NAUSEA/VOMITING Prescribed by: INDU BAIRES on 08/03/22 507 Sertraline HCl (Zoloft) 50 Mg Tablet, 50 MG PO DAILY, (Reported) Entered as Reported by: SHELLEY MCCLOUD on 08/30/15 0214 Review of Systems Review of Systems Constitutional: see HPI; No chills, No fever EENTM: nose congestion; No throat pain Respiratory: No cough, No short of breath Cardiovascular: no symptoms reported Gastrointestinal: diarrhea; No hematemesis, No melena; nausea, vomiting Genitourinary: no symptoms reported Musculoskeletal: no symptoms reported Skin: no symptoms reported Psychiatric/Neurological: See HPI Past Xwalwae-Cvoqgq-Adkxtd Hx Patient Social History Tobacco Use?: Yes Smoking Status: Current Everyday Smoker Use of E-Cig and/or Vaping dev: Yes E-Cig or Vaping type used: Nicotine Use of E-Cig and/or Vaping Phong: Current Everyday User Substance use?: No Alcohol Use?: No Pt feels they are or have been: No Immunizations Up To Date Tetanus Booster (TDap): Less than 5yrs Influenza Vaccine Up-to-Date: Yes; Up-to-Date First/Initial COVID19 Vaccinat: X4 Second COVID19 Vaccination Yann: X4 Third COVID19 Vaccination Date: X4 Seasonal Allergies Seasonal Allergies: No Past Medical History Surgery/Hospitalization HX: DM 2, ASTHMA, PCOS, MIGRAINES, SLEEP APNEA Surgeries: Yes (SKIN LESION REMOVED LEFT SHOULDER;RIGHT BREAST BIOPSY X 3;BMT'S) Breast, Ear Surgery, Gallbladder, Tonsillectomy Respiratory: Yes Asthma, Sleep Apnea Currently Using CPAP: No Currently Using BIPAP: No Cardiac: No Neurological: Yes Headaches /Migraines Reproductive Disorders: No Female Reproductive Disorders: Denies Sexually Transmitted Disease: No Genitourinary: No Gastrointestinal: No Musculoskeletal: No Endocrine: Yes (NON COMPLIANT-; MORBID OBESITY) Diabetes, Insulin dep HEENT: Yes Chronic Ear Infection, Tonsilitis Cancer: No Psychosocial: Yes (BORDERLINE PERSONALITY) Anxiety, PTSD, Bipolar, Personality Disorder, Depression Integumentary: Yes Blood Disorders: No Adverse Reaction/Blood Tranf: No Family Medical History Reviewed Nursing Family Hx No Pertinent Family Hx Physical Exam Vital Signs Vital Signs - First Documented 08/03/22 20:20 Temp 37.1 Pulse 98 Resp 18 B/P (MAP) 115/99 (104) Pulse Ox 97 O2 Delivery Room Air Capillary Refill : Less Than 3 Seconds Height, Weight, BMI Height: 5'6" Weight: 380lbs. oz. 172.314724pq; 59.95 BMI Method:Stated General Appearance: No Apparent Distress, WD/WN, Obese HEENT: PERRL/EOMI, Pharynx Normal Neck: Non Tender, Supple Respiratory: Lungs Clear, Normal Breath Sounds Cardiovascular: No Murmur, Tachycardia Gastrointestinal: Normal Bowel Sounds, Non Tender, Soft Back: Normal Inspection, No CVA Tenderness, No Vertebral Tenderness Neurologic/Psychiatric: Alert, Oriented x3 Progress/Results/Core Measures Suspected Sepsis SIRS Temperature: Pulse: 98 Respiratory Rate: 18 Laboratory Tests 08/03/22 21:25: White Blood Count 8.7 Blood Pressure 115 /99 Mean: 104 Laboratory Tests 08/03/22 21:25: Creatinine 0.71, Platelet Count 263, Total Bilirubin 0.3 Results/Orders Lab Results Laboratory Tests Test 08/03/22 20:25 08/03/22 20:28 08/03/22 20:30 08/03/22 21:25 Range/Units Glucometer 217 H 70-110 MG/DL Influenza Type A (RT-PCR) Not Detected Not Detecte Influenza Type B (RT-PCR) Not Detected Not Detecte SARS-CoV-2 RNA (RT-PCR) Not Detected Not Detecte Urine Color ORANGE Urine Clarity SL CLOUDY Urine pH 6.0 5-9 Urine Specific [place] >=1.030 1.016-1.022 Urine Protein TRACE H NEGATIVE Urine Glucose (UA) TRACE H NEGATIVE Urine Ketones NEGATIVE NEGATIVE Urine Nitrite NEGATIVE NEGATIVE Urine Bilirubin NEGATIVE NEGATIVE Urine Urobilinogen 0.2 < = 1.0 MG/DL Urine Leukocyte Esterase NEGATIVE NEGATIVE Urine RBC (Auto) NEGATIVE NEGATIVE Urine RBC NONE /HPF Urine WBC 2-5 /HPF Urine Squamous Epithelial Cells 5-10 /HPF Urine Crystals NONE /LPF Urine Bacteria NEGATIVE /HPF Urine Casts NONE /LPF Urine Mucus MODERATE H /LPF Urine Culture Indicated NO White Blood Count 8.7 4.3-11.0 10^3/uL Red Blood Count 5.14 H 3.80-5.11 10^6/uL Hemoglobin 13.6 11.5-16.0 g/dL Hematocrit 41 35-52 % Mean Corpuscular Volume 79 L 80-99 fL Mean Corpuscular Hemoglobin 27 25-34 pg Mean Corpuscular Hemoglobin Concent 33 32-36 g/dL Red Cell Distribution Width 15.3 H 10.0-14.5 % Platelet Count 263 130-400 10^3/uL Mean Platelet Volume 10.6 9.0-12.2 fL Immature Granulocyte % (Auto) 0 % Neutrophils (%) (Auto) 62 42-75 % Lymphocytes (%) (Auto) 26 12-44 % Monocytes (%) (Auto) 7 0-12 % Eosinophils (%) (Auto) 4 0-10 % Basophils (%) (Auto) 0 0-10 % Neutrophils # (Auto) 5.4 1.8-7.8 10^3/uL Lymphocytes # (Auto) 2.2 1.0-4.0 10^3/uL Monocytes # (Auto) 0.6 0.0-1.0 10^3/uL Eosinophils # (Auto) 0.4 H 0.0-0.3 10^3/uL Basophils # (Auto) 0.0 0.0-0.1 10^3/uL Immature Granulocyte # (Auto) 0.0 0.0-0.1 10^3/uL Sodium Level 140 135-145 MMOL/L Potassium Level 3.8 3.6-5.0 MMOL/L Chloride Level 107 98-107 MMOL/L Carbon Dioxide Level 22 21-32 MMOL/L Anion Gap 11 5-14 MMOL/L Blood Urea Nitrogen 11 7-18 MG/DL Creatinine 0.71 0.60-1.30 MG/DL Estimat Glomerular Filtration Rate 120 BUN/Creatinine Ratio 15 Glucose Level 211 H 70-105 MG/DL Calcium Level 9.3 8.5-10.1 MG/DL Corrected Calcium 9.5 8.5-10.1 MG/DL Total Bilirubin 0.3 0.1-1.0 MG/DL Aspartate Amino Transf (AST/SGOT) 18 5-34 U/L Alanine Aminotransferase (ALT/SGPT) 38 0-55 U/L Alkaline Phosphatase 92 40-136 U/L C-Reactive Protein High Sensitivity 2.65 H 0.00-0.50 MG/DL Total Protein 7.0 6.4-8.2 GM/DL Albumin 3.7 3.2-4.5 GM/DL My Orders Orders - INDU BAIRES MD Influenza A And B By Pcr (08/03/22 20:32) Covid 19 Inhouse Test (08/03/22 20:32) Urinalysis (08/03/22 20:54) Urine Bedside (08/03/22 20:54) Cbc With Automated Diff (08/03/22 21:01) Comprehensive Metabolic Panel (08/03/22 21:01) Hs C Reactive Protein (08/03/22 21:01) Ns Iv 1000 Ml (Sodium Chloride 0.9%) (08/03/22 21:01) Ed Iv/Invasive Line Start (08/03/22 21:01) Ondansetron Injection (Zofran Injectio (08/03/22 21:15) Medications Given in ED Current Medications Medications Dose Ordered Sig/Russ Route Start Time Stop Time Status Last Admin Dose Admin Ondansetron HCl 4 mg ONCE ONCE IVP 08/03/22 21:15 08/03/22 21:16 DC 08/03/22 21:18 4 MG Vital Signs/I&O 08/03/22 20:20 Temp 37.1 Pulse 98 Resp 18 B/P (MAP) 115/99 (104) Pulse Ox 97 O2 Delivery Room Air Capillary Refill : Less Than 3 Seconds Blood Pressure Mean: 104 Progress Note : Progress Note Seen and evaluated. IV, labs including CBC, CMP, CRP, COVID and influenza testing and UA ordered. Normal saline 1 L bolus and Zofran 4 mg IV ordered. Monitor patient. Differential diagnosis includes viral GI illness, electrolyte abnormality, dehydration, uncontrolled blood sugar, UTI 2124: Fingerstick blood sugar 217. UA shows trace glucose but no ketones or nitrates and no indication of infection. COVID and flu are negative. CMP and CBC pending. Monitor patient. 2138: CBC grossly normal. CMP pending. 2201: CMP shows normal electrolytes with glucose of 211 and normal LFTs. CRP is slightly elevated at 2.65. Patient is overall feeling better and would like to go home. I think this is reasonable given she is improved and after evaluation. Discharged home with return precautions. Patient verbalized understanding instructions and agreement with plan. OTC meds and outpatient therapy as well as follow-up plan discussed. Prescription sent for ondansetron. This was discussed as well. Departure Impression Primary Impression: Nausea vomiting and diarrhea Disposition: HOME, SELF-CARE Condition: Improved Departure-Patient Inst. Decision time for Depature: 22:04 Referrals: NO,LOCAL PHYSICIAN (PCP/Family) Primary Care Physician Patient Instructions: Nausea and Vomiting, Adult, Diarrhea, Adult ED Add. Discharge Instructions: All discharge instructions reviewed with patient and/or family. Voiced understanding. Drink plenty of fluids by taking small sips frequently. Clear or light diet for the next 24 hours and then advance as tolerated. Take medications as directed. Follow-up with your doctor in a few days for recheck. Return for worse pain, weakness, persistent vomiting, blood in your vomit or stool, chest pain, breathing problems or other concerns as needed. You may take Tylenol/acetaminophen 1000 mg every 6-8 hours as needed for pain. Scripts Ondansetron (Ondansetron Odt) 4 Mg Tab.rapdis 4 MG PO Q6H PRN for NAUSEA/VOMITING, #8 TAB 0 Refills Prov: INDU BAIRES MD 08/03/22 Work/School Note: Work Release Form Date Seen in the Emergency Department: Aug 03, 2022 Return to Work: Aug 05, 2022 Restrictions: No Restrictions INDU BAIRES MD Aug 03, 2022 21:26
[2022-08-03 21:32] LABS: BASOPHILS % (AUTO) 0 % (0-10); EOSINOPHILS # (AUTO) 0.4 10^3/uL (0.0-0.3); EOSINOPHILS % (AUTO) 4 % (0-10); HEMATOCRIT 41 % (35-52); HEMOGLOBIN 13.6 g/dL (11.5-16.0); LYMPHOCYTES # (AUTO) 2.2 10^3/uL (1.0-4.0); LYMPHOCYTES % (AUTO) 26 % (12-44); MEAN CORPUSCULAR HEMOGLOBIN 27 pg (25-34); MEAN CORPUSCULAR HGB CONC 33 g/dL (32-36); MEAN CORPUSCULAR VOLUME 79 fL (80-99); MEAN PLATELET VOLUME 10.6 fL (9.0-12.2); MONOCYTES # (AUTO) 0.6 10^3/uL (0.0-1.0); MONOCYTES % (AUTO) 7 % (0-12); NEUTROPHILS # (AUTO) 5.4 10^3/uL (1.8-7.8); NEUTROPHILS % (AUTO) 62 % (42-75); PLATELET COUNT 263 10^3/uL (130-400); WHITE BLOOD COUNT 8.7 10^3/uL (4.3-11.0)
[2022-08-03] MEDS ORDERED: ONDA4TAB11 PO (21:42)
[2022-08-03 21:54] LABS: ALBUMIN 3.7 GM/DL (3.2-4.5); BILIRUBIN,TOTAL 0.3 MG/DL (0.1-1.0); CALCIUM 9.3 MG/DL (8.5-10.1); CREATININE SERUM 0.71 MG/DL (0.60-1.30); POTASSIUM 3.8 MMOL/L (3.6-5.0)
[2022-08-03 22:10] VITALS: BP 123/92
== END 2022-08-03 22:10 | disposition home or self-care (01) ==
LOC: EDUNIT# 20:13 → ER 20:15
DX: R11.2 Nausea with vomiting, unspecified (principal); R19.7 Diarrhea, unspecified; R79.82 Elevated C-reactive protein (CRP); F17.290 Nicotine dependence, other tobacco product, uncomplicated; E11.9 Type 2 diabetes mellitus without complications; E66.01 Morbid (severe) obesity due to excess calories; Z68.43 Body mass index [BMI] 50.0-59.9, adult; Z79.4 Long term (current) use of insulin; Z20.822 Contact with and (suspected) exposure to COVID-19
CPT/HCPCS: 36415; 80053; 81000; 82947; 84703; 85025; 86141; 87636; 99283

== ENCOUNTER → 2023-01-05 | Outpatient (CLI) | payer BC, MEDICAID ==
[~2023-01-05] MED LIST changes: +CATHETER FLUSH 10 ML SYR IV PRN; +HOLD METFORMIN - RECEIVED CONTRAST 20 ML VIAL IV SCH; +IOHEXOL 350 MG/ML 100 ML (OMNIPAQUE 350) VIAL IV ONE; +NS 100 ML (IVPB) BAG IV ONE; +ONDA4TAB11 PO
--- NOTE | 2023-01-05 17:23 | Diagnostic Imaging Report ---
HISTORY: Sinus infection, pain behind left ear. CT Temporal Bones and Internal Auditory Canals (without contrast) TECHNIQUE: Thin section 0.[address] images were obtained through temporal bones and IAC without contrast. Zoomed in unilateral axial and coronal reformatted images were obtained. These were viewed on bony and soft tissue windows. One or more of the following dose reduction techniques were utilized: Automated exposure control (AEC), Adjustment of mA and/or kV according to patient size, Use of iterative reconstruction technique such as ASiR, CT scan done according to ALARA and image gently/image wisely FINDINGS: Right: The external auditory canal is normal. The tympanic membrane and scutum are intact. The middle ear cavity is normal. The tegmen tympani is intact. The ossicular chain is normal and intact. The oval window is normal. The facial nerve course is normal. The mastoid air cells are clear. The internal carotid artery and jugular bulb are in normal location. The cochlea has normal turns. The semicircular canals are normal without evidence of dehiscence. The internal auditory canal is normal. Left: The external auditory canal is normal. The tympanic membrane and scutum are intact. The middle ear cavity is normal. The tegmen tympani is intact. The ossicular chain is normal and intact. The oval window is normal. The facial nerve course is normal. The mastoid air cells are clear. The internal carotid artery and jugular bulb are in normal location. The cochlea has normal turns. The semicircular canals are normal without evidence of dehiscence. The internal auditory canal is normal. IMPRESSION: Normal CT of the temporal bones. Dictated by: Dictated on workstation # [id number]
== END ==
LOC: RAD 16:11
PROVIDERS: ATTEND Student in an Organized Health Care Education/Training Program
DX: J32.9 Chronic sinusitis, unspecified (principal); H92.02 Otalgia, left ear
CPT/HCPCS: 70480

== ENCOUNTER 2023-01-08 14:36 | Emergency (ER) | payer MEDICAID ==
[~2023-01-08] VITALS: Ht 167.7 cm; Wt 164.7 kg
[~2023-01-08 14:36] MED LIST changes: -CATHETER FLUSH 10 ML SYR IV PRN; -HOLD METFORMIN - RECEIVED CONTRAST 20 ML VIAL IV SCH; -IOHEXOL 350 MG/ML 100 ML (OMNIPAQUE 350) VIAL IV ONE; -NS 100 ML (IVPB) BAG IV ONE
[2023-01-08] MEDS ORDERED: dexAMETHasone ORAL SOLUTION 1 MG/ML 5 ML UDC PO STA (15:01)
--- NOTE | 2023-01-08 15:05 | ED Headache ---
General Chief Complaint: Head/Cervical Problems Stated Complaint: MIGRAINE Nursing Triage Note: MIGRAINE STARTED 3 DAYS AGO, TRIED ORAL IMATREX, AND EXCEDRIN MIGRAINE AND MIDOL. Source: patient Exam Limitations: no limitations History of Present Illness Date Seen by Provider: Jan 08, 2023 Time Seen by Provider: 14:38 Initial Comments 27-year-old female with past medical history most notable for chronic migraines coming in due to concerns for migraine. Is been going on for 3 days, slow in onset, typical for her. The pain is behind her eyes and radiates up somewhat. Feels like a throbbing pain. She is tried all of her normal [id number]-pmpiaxa medicines and prescription medicines, last had any medicines last night. These have only helped somewhat. She gets migraines a couple times a month, and has to come into the ER typically a few times a year. Denies any neck stiffness, fever, vision changes, weakness, numbness, or any other concerns associated with it. She does have a neurologist she follows for it. Allergies and Home Medications Allergies Coded Allergies: Penicillins (Unverified Allergy, Unknown, 11/30/21) codeine (Unverified Allergy, Unknown, 11/30/21) olanzapine (Verified Allergy, Unknown, 11/30/21) prochlorperazine (Unverified Allergy, Unknown, 11/30/21) Patient Home Medication List Home Medication List Reviewed: Yes Insulin NPH Human Isophane (Novolin N) 100 Unit/1 Ml Vial, (Reported) Entered as Reported by: RHONDA GEORGES on 02/10/21 0057 Ondansetron (Ondansetron Odt) 4 Mg Tab.rapdis, 4 MG PO Q6H PRN for NAUSEA/VOMITING Prescribed by: INDU BAIRES on 08/03/22 2142 Sertraline HCl (Zoloft) 50 Mg Tablet, 50 MG PO DAILY, (Reported) Entered as Reported by: SHELLEY MCCLOUD on 08/30/15 0214 Review of Systems Review of Systems Constitutional: No fever Eyes: No Symptoms Reported Ears, Nose, Mouth, Throat: no symptoms reported Respiratory: no symptoms reported Cardiovascular: no symptoms reported Gastrointestinal: no symptoms reported Genitourinary: no symptoms reported Musculoskeletal: no symptoms reported Skin: no symptoms reported Psychiatric/Neurological: See HPI Past Ygupcot-Sbbvpg-Mxrlps Hx Patient Social History Tobacco Use?: No Use of E-Cig and/or Vaping dev: Yes E-Cig or Vaping type used: Nicotine Use of E-Cig and/or Vaping Phong: Current Everyday User Substance use?: No Alcohol Use?: No Pt feels they are or have been: No Immunizations Up To Date Tetanus Booster (TDap): Less than 5yrs Influenza Vaccine Up-to-Date: Yes; Up-to-Date First/Initial COVID19 Vaccinat: X4 Second COVID19 Vaccination Yann: X4 Third COVID19 Vaccination Date: X4 Seasonal Allergies Seasonal Allergies: No Past Medical History Surgery/Hospitalization HX: DM 2, ASTHMA, PCOS, MIGRAINES, SLEEP APNEA TONSILS , TUBES , GB, C SECTION Surgeries: Yes (SKIN LESION REMOVED LEFT SHOULDER;RIGHT BREAST BIOPSY X 3;BMT'S) Breast, Ear Surgery, Gallbladder, Tonsillectomy Respiratory: Yes Asthma, Sleep Apnea Currently Using CPAP: No Currently Using BIPAP: No Cardiac: No Neurological: Yes Headaches /Migraines Last Menstrual Period: Dec 23, 2022 Reproductive Disorders: No Female Reproductive Disorders: Denies Sexually Transmitted Disease: No Genitourinary: No Gastrointestinal: No Musculoskeletal: No Endocrine: Yes (NON COMPLIANT-; MORBID OBESITY) Diabetes, Insulin dep HEENT: Yes Chronic Ear Infection, Tonsilitis Cancer: No Psychosocial: Yes (BORDERLINE PERSONALITY) Anxiety, PTSD, Bipolar, Personality Disorder, Depression Integumentary: Yes Blood Disorders: No Adverse Reaction/Blood Tranf: No Family Medical History No Pertinent Family Hx Physical Exam Vital Signs Vital Signs - First Documented 01/08/23 14:46 Temp 36.8 Pulse 93 Resp 18 B/P (MAP) 139/82 (101) Pulse Ox 97 O2 Delivery Room Air Capillary Refill : Less Than 3 Seconds Height, Weight, BMI Height: 5'6" Weight: 380lbs. oz. [id number]; 58.00 BMI Method:Stated General Appearance: WD/WN, no apparent distress HEENT: PERRL/EOMI, normal ENT inspection, pharynx normal Neck: non-tender, full range of motion, supple, normal inspection, other (No meningismus) Cardiovascular: regular rate, rhythm, no edema, no murmur Respiratory: chest non-tender, lungs clear, normal breath sounds, no respiratory distress, no accessory muscle use Gastrointestinal: normal bowel sounds, non tender, soft; No distended, No guarding, No rebound Back: normal inspection, no CVA tenderness, no vertebral tenderness Extremities: normal range of motion, non-tender, normal inspection, no pedal edema, no calf tenderness, normal capillary refill Psychiatric: alert, oriented x 3 Crainal Nerves: normal hearing, normal speech, PERRL Coordination/Gait: normal finger to nose, normal gait Motor/Sensory: no motor deficit, no sensory deficit, no pronator drift Skin: normal color, warm/dry Progress/Results/Core Measures Results/Orders My Orders Orders - JAYLYN GRIFFITH MD Metoclopramide Injection (Reglan Injecti (01/08/23 15:15) Diphenhydramine Injection (Diphenhydram (01/08/23 15:15) Ketorolac Injection (Ketorolac Injection (01/08/23 15:15) Dexamethasone Oral Soln (Ed) (Dexamethas (01/08/23 15:01) Vital Signs/I&O 01/08/23 14:46 Temp 36.8 Pulse 93 Resp 18 B/P (MAP) 139/82 (101) Pulse Ox 97 O2 Delivery Room Air Blood Pressure Mean: 101 Progress Progress Note : Progress Note 27-year-old female coming in for what she states is a typical migraine. She has no red flags on exam or on history. She has had follow-up with a neurologist in the past and has had a workup regarding this. No advanced imaging or labs necessary at this time. Will give her IM injections of medications and have her follow-up with her neurologist as an outpatient. Departure Impression Primary Impression: Headache Qualified Codes: G44.209 - Tension-type headache, unspecified, not intractable Disposition: HOME, SELF-CARE Condition: Stable Departure-Patient Inst. Decision time for Depature: 15:15 Referrals: [facility] (PCP/Family) Primary Care Physician Patient Instructions: Headache, Adult ED Add. Discharge Instructions: Please follow-up with your neurologist if you are noticing the headaches are getting worse or more often. You can also discuss with him some of the new medications that are out they can lower the number of migraines you have. Work/School Note: Work Release Form Date Seen in the Emergency Department: Jan 08, 2023 Return to Work: Jan 09, 2023 Restrictions: No Restrictions JAYLYN GRIFFITH MD Jan 08, 2023 15:05
[2023-01-08] MEDS ORDERED: KETOROLAC INJ 30 MG/ML VIAL IM ONE (15:15)
[2023-01-08] MEDS ORDERED: METOCLOPRAMIDE INJ 10 MG/2 ML (REGLAN) IM ONE (15:15)
[2023-01-08] MEDS ORDERED: ONDANSETRON 4 MG (ZOFRAN) ORAL DISSOLVE TAB PO ONE (15:15)
[2023-01-08] MEDS ORDERED: diphenhydrAMINE INJ 50 MG/ML VIAL IM ONE (15:15)
[2023-01-08 15:44] VITALS: BP 132/80
== END 2023-01-08 15:58 | disposition home or self-care (01) ==
LOC: EDUNIT# 14:36 → ER 14:38
DX: R51.9 Headache, unspecified (principal); E66.01 Morbid (severe) obesity due to excess calories; E11.9 Type 2 diabetes mellitus without complications; F17.290 Nicotine dependence, other tobacco product, uncomplicated; Z68.43 Body mass index [BMI] 50.0-59.9, adult; Z79.4 Long term (current) use of insulin
CPT/HCPCS: 99283